=== PATIENT | female | born 1950 | race Caucasian/White ===

== ENCOUNTER 2024-08-22 07:08 | Inpatient (IN) | payer MEDICARE, MEDICAID, SELFPAY ==
[2024-08-22] VITALS (36 sets, daily range): BP systolic 126–183; BP diastolic 70–115; PULSE 60–96; RESP 16–20; TEMP 36.5–37.2; O2SAT 89–97; BMI 19.5; BMI 20.6; BMI 20.9
--- NOTE | 2024-08-22 07:30 | PD.EDRME ---
Rapid Medical Screening Exam RME Arrival date/time: 08/22/24 07:08 74-year-old female presents emergency department today for complaints of nausea vomiting abdominal pain Chief Complaint: Abdominal Pain Vital signs: Vital Signs Temperature 98.3 F 08/22/24 07:18 Pulse Rate 96 08/22/24 07:18 Respiratory Rate 18 08/22/24 07:18 Blood Pressure 183/101 H 08/22/24 07:18 Pulse Oximetry (%) 97 08/22/24 07:18 Oxygen Delivery Method Room Air 08/22/24 07:18
[2024-08-22 07:53] LABS: Basophils # (Auto) 0.1 Thou/mm3 (0.0-0.2); Basophils % (Auto) 1 % (0-2.5); Eosinophils # (Auto) 0.0 Thou/mm3 (0.0-0.5); Eosinophils % (Auto) 0 % (0-10); Hematocrit 44.5 % (36.0-46.0); Hemoglobin 14.9 g/dL (12.0-16.0); Immature Granulocytes Auto 0.04 Thou/mm3 (0.00-0.00); Lymphocytes # (Auto) 2.4 Thou/mm3 (1.0-4.8); Lymphocytes % (Auto) 23 % (10-50); Mean Corpuscular HGB Conc 33.5 g/dl (31.0-37.0); Mean Corpuscular Hemoglobin 31.0 pg (25.0-35.0); Mean Corpuscular Volume 93 fL (80-100); Monocytes # (Auto) 0.7 Thou/mm3 (0.0-0.8); Monocytes % (Auto) 7 % (0-12); Neutrophils # (Auto) 7.3 Thou/mm3 (1.8-7.7); Neutrophils % (Auto) 69 % (37-80); Nucleated Red Blood Cell # 0.00 Thou/mm3 (0.00-0.00); Nucleated Red Blood Cell % 0 /100 WBC (0); Platelet Count 223 Thou/mm3 (140-440); RDW Standard Deviation 50.6 fL (36.4-46.3); Red Blood Count 4.80 Miln/mm3 (4.00-5.20); White Blood Count 10.5 Thou/mm3 (3.6-11.0)
--- NOTE | 2024-08-22 07:57 | EDNOTE_ITS ---
ED Abdominal Pain RME/HPI General Chief Complaint: Abdominal Pain Stated complaint: NAUSEA VOMITING ABD PAIN Time seen by provider: 08/22/24 07:41 Arrival date/time: 08/22/24 07:08 Limitations: no limitations RME / HPI RME / HPI narrative: 08/22/24 07:08 74-year-old female presents emergency department today for complaints of nausea vomiting abdominal pain DR. 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 Reportedly has had persistent abdominal pain since colectomy 1 year ago that is gradually worsening. However, noted pain became sever last night adding I couldn't sleep all night . Accompanied by nausea, vomiting, and one episode of loose stool. Reportedly has consulted her GI Dr. Leroy regarding pain and has an EGD, colonoscopy, and swallow study scheduled for . Denies fevers, chills, chest pain, cough, shortness of breath, diarrhea, constipation, or urinary symptoms. Related Data Home Medications ?Medication ?Instructions ?Recorded ?Confirmed alprazolam 1 mg tablet 1 mg PO BID PRN Anxiety ##0 03/26/14 04/12/23 Held on 10/04/23. Instructions: Resume on 10/05/23. atorvastatin 80 mg tablet 80 mg PO QDAY 04/22/2004/12 omeprazole 40 mg capsule,delayed 40 mg PO QDAY 1 04/12/23 release hydrocodone 10 mg-acetaminophen 1 tab PO Q4HR PRN Pain 12/03/21 04/12/23 325 mg tablet Held on 10/04/23. Instructions: Resume on 10/05/23. fluticasone propionate 110 2 puff inhalation PRN PRN 0 04/12/23 04/12/23 mcg/actuation HFA aerosol inhaler DIFFICULTY BREATHING meclizine 25 mg tablet 25 mg PO QDAY 04/12/2304/12 mometasone 50 mcg/actuation nasal 50 mcg intranasal QD AY 04/12/23 04/12/23 spray Previous Rx's ?Medication ?Instructions ?Recorded ascorbic acid (vitamin C) 250 mg 500 mg (2 x 250 mg) P O BID #60 tabs 04/19/23 tablet (Vitamin C) docusate sodium 100 mg capsule 100 mg PO BID #90 caps 04/19/23 hydrocodone 10 mg-acetaminophen 1 tab PO Q8H PRN pain (scale score 04/19/23 325 mg tablet 7-10) #30 tabs Held on 10/04/23. Instructions: Resume on 10/05/23. zinc sulfate 50 mg zinc (220 mg) 220 mg (4.4 x 50 mg z inc (220 mg)) 04/19/23 capsule PO QDAY #30 caps Allergies Allergy/AdvReac Type Severity Reaction Status Date / Time ciprofloxacin (From Cipro) Allergy Severe itching Verified 08/22/24 07:15 onion Allergy Intermediate itching Verified 08/22/24 07:15 prochlorperazine AdvReac Severe Palpitation Verified 08/22/24 07:15 s Review of Systems Review of Systems Systems Reviewed: All systems reviewed, normal except as documented Past Medical History Past Medical History NEUROLOGIC: Positive Head Trauma CARDIAC: Positive Hypercholesterolemia RESPIRATORY: Positive Asthma, Bronchitis and Pneumonia (05/2021) GASTROINTESTINAL: Positive Gastrointestinal Disorders, Gastrointestinal Bleed, Ulcer, Colorectal Cancer, Hiatal Hernia and Gastroesophageal Reflux Disease GENITOURINARY: Positive Genitourinary Disorders (cystitis, hx of bladder ca, RECURRENT UTIs) REPRODUCTIVE: Positive Breast Cancer (RIGHT CA- TUMOR REMOVED) and Previous Pregnancies MUSCULOSKELETAL: Positive Musculoskeletal Disorders, Arthritis, Rheumatoid Arthritis, Carpal Tunnel Syndrome and Fractures ENT: Positive Cataracts (bilateral lens implant) and Head Trauma HEMATOLOGIC: Positive Blood Disorders and Anemia PSYCHO/SOCIAL: Positive Depression and Anxiety OTHER HISTORY: Positive Hospitalization (had bleeding after colonoscopy, open cholestectomy), Blood Transfusions, Blood Transfusion Reaction (Given wrong type one time and she became unresponsive), Chemotherapy, Cancer, Breast Cancer (RIGHT CA- TUMOR REMOVED) and Colorectal Cancer Family History FAMILY HISTORY: Positive Family Cardiac Disorders and Family Cancer Surgical History SURGICAL: Positive Tonsillectomy, Abdominal Surgery, Bowel Surgery (COLON CANCER), Lumpectomy (RIGHT, NO LYMPH NODES REMOVED), Hysterectomy and Section (X3) Social History SMOKING STATUS: Current every day smoker ED Exam General Limitations: Present no limitations General appearance: Present alert, anxious and other (appears to be in pain ) Head Head exam: Present atraumatic, normocephalic and normal inspection Eye Eye exam: Present normal appearance, PERRL and EOMI ENT ENT exam: Present normal exam, normal oropharynx and mucous membranes moist Neck Neck exam: Present normal inspection, full ROM and trachea midline Chest Chest inspection: Present normal inspection and symmetric chest wall rise Respiratory Respiratory exam: Present normal lung sounds bilaterally Cardiovascular Cardiovascular exam: Present regular rate, normal rhythm and normal heart sounds Abdominal Exam Abdominal exam: Present soft, tenderness (tenderness over the mid upper abdomen ), normal bowel sounds and other (Tinkling bowel sounds ) Extremities Exam Extremities exam: Present normal inspection and full ROM Back Exam Back exam: Present normal inspection and full ROM Neurological Exam Neurological exam: Present alert, oriented X3 and CN II-XII intact Psychiatric Psychiatric exam: Present normal affect and normal mood Skin Skin exam: Present warm, dry, intact and normal color Course Quality Measures none Orders Category Date Time Status COVID-19 Screening Questionnaire NOW Care 08/22/24 13:[address] Screening NOW Care 08/22/24 07:[address] Screening NOW Care 08/22/24 08:09 Active Decision to Admit X1 Care 08/22/24 13:16 Active Insert IV NOW Care 08/22/24 07:30 Active Consult to General Surgery Stat Cons 08/22/24 13:[address] abdomen pelvis w con Stat Exams 08/22/24 08:08 Completed CBC Stat Lab 08/22/24 07:36 Completed Comprehensive Metabolic Panel Stat Lab 08/22/24 07:36 Completed Lactic Acid [Lactate (Lactic Acid)] Stat Lab 08/22/24 09:11 Completed Lipase Stat Lab 08/22/24 07:36 Completed UA, C/S IF [Urinalysis, C/S if Indicated] Stat Lab 08/22/24 10:45 Completed Urine Culture Stat Lab 08/22/24 10:45 Received Morphine Inj Med 08/22/24 08:08 Discontinued 4 mg IVP X1 ONE Morphine Inj Med 08/22/24 10:55 Discontinued 4 mg IVP X1 ONE Ondansetron Inj [Zofran Inj] Med 08/22/24 07:29 Discontinued 4 mg IVP X1 ONE Ondansetron Inj [Zofran Inj] Med 08/22/24 08:08 Discontinued 4 mg IVP X1 ONE Ondansetron Inj [Zofran Inj] Med 08/22/24 10:54 Discontinued 4 mg IVP X1 ONE Pantoprazole Inj [Protonix Inj] Med 08/22/24 08:08 Discontinued 40 mg IVP X1 ONE Sodium Chloride 0.9% 1000 ml [Ns] 1,000 ml Med 08/22/24 08:08 Discontinued IV 999 mls/hr Vital Signs Vital signs: Vital Signs Temperature 98.3 F 08/22/24 07:18 Pulse Rate 96 08/22/24 07:18 Respiratory Rate 18 08/22/24 07:18 Blood Pressure 183/101 H 08/22/24 07:18 Pulse Oximetry (%) 97 08/22/24 07:18 Oxygen Delivery Method Room Air 08/22/24 07:18 Pulse ox is 97% on room air which is adequate. Abdominal Pain MDM MDM Narrative MDM Narrative:: Valencia Rucker am scribing for and in the presence of Dr. Odonnell. 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), hyperlipidemia How is presenting disease/condition affected by chronic disease/condition?: exacerbated by Evaluation data The following diagnostics were reviewed and interpreted by me:: lab results and radiology exam(s) Lab and/or radiology exams considered but not ordered:: None Interpretation Summary: Ordering Physician: Clyde Odonnell MD Date of Service: 08/22/24 Procedure(s): CT abdomen pelvis w con Accession Number(s): [id number] cc: Clyde Odonnell MD; HERNANDEZ LIMON MD; Saul Zavala MD~ Examination: CT abdomen with intravenous contrast CT pelvis with intravenous contrast 2-D coronal reconstructions 2-D sagittal reconstructions Date and time of exam:August 22, 2024 1154 hours Comparison 11/04/2023 INDICATIONS: Diagnosis malignant neoplasm of the colon with lower abdominal pain today. CTDI: vol (mGy) 6.16 DLP: (mGycm) 303 Technique: Multiple axial sections of the abdomen and pelvis have been obtained. 64 slice high-resolution scanner used. 3 mm axial sections have been obtained, post intravenous injection 60 cc [id number] 2-D sagittal, coronal reconstructions obtained. Low dose protocols were performed. One or more of the following dose reduction techniques were used; automated exposure control, adjustment of the mA and/or KV according to patient size, use of iterative reconstruction technique. Findings: Mild intrahepatic biliary tract dilatation Absent gallbladder Common hepatic duct 15 mm No pancreatic mass Minimally dilated pancreatic duct 3 mm Aorta normal size No hydronephrosis Multiple fluid distended small bowel loops No diverticulitis No bladder mass or bladder calculi Moderate stool in the colon No pelvic mass Severe osteopenia with moderate disc narrowing L5-S1 IMPRESSION: Extrahepatic biliary tract dilatation, common hepatic duct 15 mm, recommend hepatobiliary sonography follow-up High-grade small bowel obstruction, recommend Gastrografin small bowel series follow-up Dictated By: Saul Zavala MD Signed By: <Electronically signed by aSul Zavala MD in [place]> 08/22/24 1259 Medications / Prescriptions Medications or Prescriptions considered but not ordered:: None Medication administrations:: Medication Administration History Discontinued Medications Sodium Chloride (Ns) 1,000 mls @ 999 mls/hr IV .Q1H1M ONE Stop: 08/22/24 09:08 Last Infusion: 08/22/24 09:54 Dose: Infused Documented By: Admin: 08/22/24 08:29 Dose: 999 mls/hr Documented By: CG Morphine Sulfate (Morphine Sulf Inj 10 Mg/Ml Vial) 4 mg IVP X1 ONE Stop: 08/22/24 08:09 Last Admin: 08/22/24 08:27 Dose: 4 mg Documented By: CG Morphine Sulfate (Morphine Sulf Inj 10 Mg/Ml Vial) 4 mg IVP X1 ONE Stop: 08/22/24 10:56 Last Admin: 08/22/24 11:12 Dose: 4 mg Documented By: CG Ondansetron HCl (Ondansetron Inj 2 Mg/Ml Inj 2 Ml) 4 mg IVP X1 ONE; Protocol Stop: 08/22/24 07:30 Last Admin: 08/22/24 08:26 Dose: 4 mg Documented By: CG Ondansetron HCl (Ondansetron Inj 2 Mg/Ml Inj 2 Ml) 4 mg IVP X1 ONE; Protocol Stop: 08/22/24 08:09 Last Admin: 08/22/24 08:27 Dose: 4 mg Documented By: CG Ondansetron HCl (Ondansetron Inj 2 Mg/Ml Inj 2 Ml) 4 mg IVP X1 ONE; Protocol Stop: 08/22/24 10:55 Last Admin: 08/22/24 11:12 Dose: 4 mg Documented By: CG Pantoprazole Sodium (Pantoprazole Inj 40 Mg Vial) 40 mg IVP X1 ONE Stop: 08/22/24 08:09 Last Admin: 08/22/24 08:27 Dose: 40 mg Documented By: DHAVAL See above Consultations Consultation(s) initiated? (list below): Yes Consultation #1 (Physician, Specialty, Details): I spoke with surgeon Dr. Salas. Discussed patients PMHx, HPI, ED course, exam findings, labs, and radiology results. Recommends admission and bowel series. Time: 13:11 Diagnosis Differential diagnosis abdominal pain: abdominal pain, diverticulitis, gastroenteritis, pancreatitis and small bowel obstruction Most likely diagnosis given after review of the tests above:: High grade small bowel obstruction Admission Indicated Admission indicated?: indicated Admission Request Was there a request for admission?: Yes Admission Attestation Admission request attestation: Discussed case with [] from Hospitalist service regarding admission. Discussed patients ED course, exam findings, labs, and radiology results. The Hospitalist [agrees,declines] to accept the patient for admission. Disposition Plan Disposition Plan: Admit Discharge Plan Plan Patient Disposition: Admit Acute Care w/in Hospital Prescriptions/Referrals Prescriptions/Med Rec: No Action alprazolam 1 MG tablet 1 mg PO BID PRN (Reason: Anxiety) Qty: 0 hydrocodone-acetaminophen 10-325 mg tablet 1 tab PO Q4HR PRN (Reason: Pain) atorvastatin 80 mg tablet 80 mg PO QDAY Patient Comments: take 1 tablet by mouth once daily omeprazole 40 mg capsule,delayed release(DR/EC) 40 mg PO QDAY Patient Comments: take 1 capsule by mouth once daily meclizine 25 mg tablet 25 mg PO QDAY mometasone 50 mcg/actuation spray,non-aerosol 50 mcg INTRANASAL QDAY fluticasone propionate 110 mcg/actuation HFA aerosol inhaler 2 puff INHALATION PRN PRN (Reason: DIFFICULTY BREATHING) Patient Comments: inhale 1 puff by mouth and INTO THE LUNGS twice a day docusate sodium 100 mg Capsule 100 mg PO BID Qty: 90 0RF zinc sulfate 50 mg zinc (220 mg) Capsule 220 mg PO QDAY Qty: 30 0RF ascorbic acid (vitamin C) [Vitamin C] 250 mg Tablet 500 mg PO BID Qty: 60 0RF hydrocodone-acetaminophen 10-325 mg tablet 1 tab PO Q8H MDD 3 PRN (Reason: pain (scale score 7-10)) Qty: 30 0RF Referrals: Hernandez Limon MD [Primary Care Provider] - In 1 week Problem List Clinical Impression: Small bowel obstruction Patient/Caregiver Discharge Instructions Print Language: Turkish Stand Alone Forms: [employer] Award Info., Patient Portal Info Letter
--- NOTE | 2024-08-22 08:08 | XR_ITS ---
Examination: CT abdomen with intravenous contrast CT pelvis with intravenous contrast 2-D coronal reconstructions 2-D sagittal reconstructions Date and time of exam:August 22, 2024 1154 hours Comparison 11/04/2023 INDICATIONS: Diagnosis malignant neoplasm of the colon with lower abdominal pain today. CTDI: vol (mGy) 6.16 DLP: (mGycm) 303 Technique: Multiple axial sections of the abdomen and pelvis have been obtained. 64 slice high-resolution scanner used. 3 mm axial sections have been obtained, post intravenous injection 60 cc [id number] 2-D sagittal, coronal reconstructions obtained. Low dose protocols were performed. One or more of the following dose reduction techniques were used; automated exposure control, adjustment of the mA and/or KV according to patient size, use of iterative reconstruction technique. Findings: Mild intrahepatic biliary tract dilatation Absent gallbladder Common hepatic duct 15 mm No pancreatic mass Minimally dilated pancreatic duct 3 mm Aorta normal size No hydronephrosis Multiple fluid distended small bowel loops No diverticulitis No bladder mass or bladder calculi Moderate stool in the colon No pelvic mass Severe osteopenia with moderate disc narrowing L5-S1 IMPRESSION: Extrahepatic biliary tract dilatation, common hepatic duct 15 mm, recommend hepatobiliary sonography follow-up High-grade small bowel obstruction, recommend Gastrografin small bowel series follow-up
[2024-08-22 08:09] LABS: Alanine Aminotransferase 27 U/L (10-49); Albumin, Serum 4.8 gm/dL (3.4-4.8); Albumin/Globulin Ratio 1.7 (1.2-2.2); Alkaline Phosphatase 117 U/L (46-116); Anion Gap 11 (7-16); Aspartate Amino Transferase 39 U/L (0-34); BUN/Creatinine Ratio 13 Ratio (12-20); Bilirubin,Total 0.7 mg/dL (0.3-1.2); Blood Urea Nitrogen 14 mg/dL (9-23); Calcium 10.0 mg/dL (8.3-10.6); Calcium (Corrected) 10.0 mg/dL (8.5-10.1); Carbon Dioxide 26.4 mMol/L (20.0-31.0); Chloride 106 mMol/L (98-107); Creatinine (Component) 1.1 mg/dL (0.6-1.3); Estimated Creatinine Clearance 31.6 mL/min (>60); Globulin 2.9 gm/dL (2.3-3.5); Glucose 145 mg/dL (74-106); Lipase 36 U/L (12-53); Osmolality,Calculated 288 (275-295); Potassium 4.1 mMol/L (3.4-5.1); Sodium 143 mMol/L (136-145); Total Protein 7.7 gm/dL (5.7-8.2); eGFR 52 See Note
[2024-08-22] MEDS: ONDANSETRON INJ 2 MG/ML INJ 2 ML 4 MG IVP ×5 (08:26→20:16)
[2024-08-22] MEDS: MORPHINE SULF INJ 10 MG/ML VIAL 4 MG IVP ×3 (08:27→16:14)
[2024-08-22] MEDS: SODIUM CHLORIDE 0.9% 1000 ML 1,000 ML 999 ML IV (08:29)
[2024-08-22 09:21] LABS: Lactate (Lactic Acid) 1.2 mMol/L (0.4-2.0)
[2024-08-22 10:57] LABS: Collection Type, Urine Clean Catch
[2024-08-22 11:46] LABS: Bacteria,Urine Rare; Bilirubin,Urine Negative (Negative); Blood,Urine Trace (Negative); Clarity,Urine Turbid (Clear/Hazy); Color,Urine Lt-Yellow (Lt Yel-Yel); Glucose, Urine Negative (Negative); Ketones,Urine Negative (Negative); Leukocyte Esterase,Urine Positive (Negative); Nitrite,Urine Negative (Negative); PH,Urine 7.0 (5.0-7.0); Protein,Urine Negative (Neg - Trace); RBC,Urine 3 /hpf (0-3); Specific Gravity,Urine 1.013 (1.001-1.035); Squamous Epithelial Cell,Urine 1 /hpf (0-5); Urobilinogen,Urine Negative mg/dL (0.0-1.0); WBC,Urine 14 /hpf (0-5)
[2024-08-22 11:54] LABS: Culture Indicated,Urine Yes
--- NOTE | 2024-08-22 17:35 | XR_ITS ---
Examination: Small bowel series with KUBs Date and time: August 22, 20242043 hours INDICATIONS: Abdominal pain and distention this week FINDINGS: Patient received 120 cc Gastrografin 1 minute and 30 minute 1 hour films obtained follow-up Contrast distended small bowel loops noted IMPRESSION: Small bowel obstruction pattern recommend follow-up films midnight 3:00 AM 7:00 AM
--- NOTE | 2024-08-22 17:44 | ESHP_ITS ---
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 Admits to chronic abdominal pain since transverse colectomy last year. However, reports 3 days of gradual onset, 9/10 abdominal pain, diffusely. She has chronic constipation managed well with daily DOCUSATE. Her last bowel movement was yesterday and was small, normal consistency and color. She hasn't been passing flatus since the last 3 days. Reports being nauseous over the last day, and admits to several episodes of vomiting, nonbloody, stomach content. She has a history of Carrasco syndrome (MLH1 and PMS2), was diagnosed with adenocarcinoma of the transverse colon and had a transverse colectomy in 2023 at our facility. She was followed up by Dr. Reid who had previously in regards to her cancer. There was evidence of 22 mm oval mass of the right breast on mammogram in addition to small pulmonary nodule in the lungs. Per chart review she's had a history of noninvasive bladder cancer which was treated with chemotherapy without evidence of recurrence since 2023. She was seen by Dr. Puri last year and he had ordered PET scans but patient had never followed up. Currently not following an oncologist outpatient, but is under the care of Dr. Leroy for stomach pain, and he had planned for EGD and colonoscopy this . Interestingly, she states she was diagnosed with several liver masses in 2014. At the time, she underwent surgery for presumptive mass excisions; however, her gallbladder was removed at the time, and, to her knowledge, nothing was done about the liver mass. She takes NORCO every other day for right shoulder pain. She takes DOCUSATE regularly and denies history of constipation. Denies fever, chills, night sweats, abnormal weight changes, chest pain, shortness of breath, chest pain, dizziness, fall or trauma, diarrhea, bloody stool, hematuria, dysuria, urinary urgency or frequency. Past Medical History: * Carrasco syndrome, adenocarcinoma of the transverse colon, breast cancer, pulmonary nodules, liver nodules, HLD, seasonal allergy, asthma. Past Surgical History: * Transverse colectomy 2023, right breast mastectomy 2023, hiatal hernia repair 1997, cholecystectomy 2014, C-sections x 3. Medications: * OMEPRAZOLE, ATORVASTATIN 10 mg, ASPIRIN 81 mg, DOCUSATE, FLONASE, inhaler as needed for asthma. Allergies: * Severe itching with CIPROFLOXACIN, tachycardia with HYDROMORPHONE, palpitation with PROCHLORPERAZINE, allergy to onion (itching). Family History: * History of cancer and heart disease in family. Social History: * Born in [place], grew up in [place], moved to [place] in 1967. 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 * Occasional alcohol use. * Active smoker since the age of 17, about [id number] history. * Denies drug use. ED Course: * Afebrile, BP 183/101, HR 96, satting well on room air. * CBC and CMP relatively unremarkable except for elevated AST/ALT which appear to be chronic, and EGFR 52%, creatinine 1.1 (baseline 1.0.). * UA turbid with positive leukocyte esterase, WBC 14, however she is asymptomatic. * CT abdomen showed high-grade SBO, redemonstrated hepatic duct dilation, also seen on CT abdomen from 2023 (likely close cholecystectomy change). Reason for admission: Will admit for GASTROGRAFIN study and will involve GI team. General surgery, Dr. Salas, is following. Exam Vital Signs Temp Pulse Resp BP Pulse Ox O2 Del Method 97.7 F 73 18 159/92 H 95 Room Air 08/22/24 16:08/22/24 16:00 08/22/24 16:00 08/22/24 16:08/22/24 16:08/22/24 16:00 Narrative Exam GENERAL * Normal appearing elderly female, no apparent distress HEENT * NCAT.?SARAH. Dry oral mucosa. Patent Nares NECK * Supple, nontender, no JVD. CHEST * RRR, no m/g/r * CTAB, no w/r/r, symmetrical expansion. * S/p right mastectomy, no palpable nodules. ABDOMEN * Soft, flat, diffusely tender to mild palpation, guarding and rebound tenderness present throughout. No palpable masses noted. Several well-healed scars noted throughout the abdomen. * Bowel sounds presents, but decreased on the right. EXTREMITIES * No edema/cyanosis.? SKIN * Warm and dry, no jaundice/rashes. NEUROMUSCULAR * No focal neurologic deficits. PSYCHIATRY * Normal mood and affect, cooperative, no SI or HI or hallucinations. Results: Labs 08/25/24 05:52 08/25/24 05:52 Labs: Short CBC 08/22/24 Range/Units 07:36 WBC 10.5 (3.6-11.0) Thou/mm3 Hgb 14.9 (12.0-16.0) g/dL Hct 44.5 (36.0-46.0) % Plt Count 223 (140-440) Thou/mm3 BMP 08/22/24 07:36 Sodium 143 Potassium 4.1 Chloride 106 Carbon Dioxide 26.4 BUN 14 Creatinine 1.1 Glucose 145 H Calcium 10.0 Liver Function 08/22/24 Range/Units 07:36 Total Bilirubin 0.7 (0.3-1.2) mg/dL AST 39 H (0-34) U/L ALT 27 (10-49) U/L Alkaline Phosphatase 117 H (46-116) U/L Albumin 4.8 (3.4-4.8) gm/dL Urine 08/22/24 Range/Units 10:45 Urine Color Lt-Yellow (Lt Yel-Yel) Urine Clarity Turbid A (Clear/Hazy) Urine pH 7.0 (5.0-7.0) Ur Specific [place] 1.013 (1.001-1.035) Urine Protein Negative (Neg - Trace) Urine Glucose (UA) Negative (Negative) Quality Measures Quality Measures none Advance care planning discussed with:: patient Medications Home Medications and Allergies Home Medications ?Medication ?Instructions ?Recorded ?Confirmed ?Type alprazolam 1 mg tablet 1 mg PO BID PRN Anxiety ##0 03/26/14 08/22/24 History Held on 10/04/23. Instructions: Resume on 10/05/23. omeprazole 40 mg capsule,delayed 40 mg PO QDAY 1 08/22/24 History release hydrocodone 10 mg-acetaminophen 1 tab PO Q4HR PRN Pain 12/03/21 08/22/24 History 325 mg tablet fluticasone propionate 110 2 puff inhalation PRN PRN 0 04/12/23 08/22/24 History mcg/actuation HFA aerosol inhaler DIFFICULTY BREATHING mometasone 50 mcg/actuation nasal 50 mcg intranasal QD AY 04/12/23 08/22/24 History spray aspirin 81 mg tablet,delayed 81 mg PO QDAY 08/22/24 History release Allergies Allergy/AdvReac Type Severity Reaction Status Date / Time ciprofloxacin (From Cipro) Allergy Severe itching Verified 08/22/24 17:43 hydromorphone (From Dilaudid) Allergy Severe tachycardia Verified 08/22/24 17:43 onion Allergy Intermediate itching Verified 08/22/24 17:43 prochlorperazine AdvReac Severe Palpitation Verified 08/22/24 17:43 s Visit Medications Acetaminophen (Acetaminophen 325 Mg Tablet) 650 mg PO Q6H PRN PRN Reason: PAIN SCALE 1-3 (mild Stop: 09/21/24 17:34 Acetaminophen (Acetaminophen 325 Mg Tablet) 650 mg PO Q6H PRN PRN Reason: Fever >100.4 Stop: 09/21/24 17:34 Heparin Sodium (Porcine) (Heparin Sod Inj 5000 Unit/Ml Vial) 5,000 unit SC BID [facility] Stop: 09/05/24 20:59 Hydralazine HCl (Hydralazine Inj 20 Mg/Ml Vial) 10 mg IVP Q6H PRN PRN Reason: BP >160/100 Stop: 09/21/24 17:42 Lactated Ringer's (Lactated Ringers) 1,000 mls @ 80 mls/hr IV .[id number] [facility] Stop: 09/21/24 17:36 Acetaminophen (Ofirmev Inj) 1,000 mg in 100 mls @ 250 mls/hr IV Q6HR PRN PRN Reason: Fever or Pain 1-4 Stop: 08/23/24 06:23 Morphine Sulfate (Morphine Sulf Inj 10 Mg/Ml Vial) 2 mg IVP Q6H PRN PRN Reason: Pain 6-10 Morphine Sulfate (Morphine Sulf Inj 10 Mg/Ml Vial) 1 mg IVP Q4H PRN PRN Reason: Pain 4-6 Ondansetron HCl (Ondansetron Inj 2 Mg/Ml Inj 2 Ml) 4 mg IVP Q6H PRN; Protocol PRN Reason: NAUSEA OR VOMITING Stop: 09/21/24 17:34 Pantoprazole Sodium (Pantoprazole Inj 40 Mg Vial) 40 mg IVP QDAY BARBARA Stop: 09/21/24 17:44 Discontinued Medications Sodium Chloride (Ns) 1,000 mls @ 999 mls/hr IV .Q1H1M ONE Stop: 08/22/24 09:08 Last Infusion: 08/22/24 09:54 Dose: Infused Morphine Sulfate (Morphine Sulf Inj 10 Mg/Ml Vial) 4 mg IVP X1 ONE Stop: 08/22/24 08:09 Last Admin: 08/22/24 08:27 Dose: 4 mg Morphine Sulfate (Morphine Sulf Inj 10 Mg/Ml Vial) 4 mg IVP X1 ONE Stop: 08/22/24 10:56 Last Admin: 08/22/24 11:12 Dose: 4 mg Morphine Sulfate (Morphine Sulf Inj 10 Mg/Ml Vial) 4 mg IVP X1 ONE Stop: 08/22/24 15:37 Last Admin: 08/22/24 16:14 Dose: 4 mg Ondansetron HCl (Ondansetron Inj 2 Mg/Ml Inj 2 Ml) 4 mg IVP X1 ONE; Protocol Stop: 08/22/24 07:30 Last Admin: 08/22/24 08:26 Dose: 4 mg Ondansetron HCl (Ondansetron Inj 2 Mg/Ml Inj 2 Ml) 4 mg IVP X1 ONE; Protocol Stop: 08/22/24 08:09 Last Admin: 08/22/24 08:27 Dose: 4 mg Ondansetron HCl (Ondansetron Inj 2 Mg/Ml Inj 2 Ml) 4 mg IVP X1 ONE; Protocol Stop: 08/22/24 10:55 Last Admin: 08/22/24 11:12 Dose: 4 mg Ondansetron HCl (Ondansetron Inj 2 Mg/Ml Inj 2 Ml) 4 mg IVP X1 ONE; Protocol Stop: 08/22/24 15:37 Last Admin: 08/22/24 16:13 Dose: 4 mg Pantoprazole Sodium (Pantoprazole Inj 40 Mg Vial) 40 mg IVP X1 ONE Stop: 08/22/24 08:09 Last Admin: 08/22/24 08:27 Dose: 40 mg Assessment & Plan Plan In summary: 74-year-old female with 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 Admitted for high-grade SBO. Recommendation from general surgery and GI teams. High-grade SBO. Adenocarcinoma of transverse colon S/p transverse colectomy 2023 Carrasco syndrome Hx tubular adenocarcinoma of the colon Chronic constipation As stated in HPI, extensive history of cancer involving the colon and had transverse colectomy 2023, with ongoing abdominal pain. However reports worsening pain over the last 2 days associated with nausea and vomiting. Last bowel movement was yesterday and was normal. Currently not passing gas. Extensive abdominal tenderness tenderness noted noted on exam throughout. Sounds were present but decreased on the right. CT abdomen showed high-grade SBO. General surgery on board. Given extensive history of adenocarcinoma and Carrasco syndrome, we have involved her GI doctor, Dr. Leroy ? Bowel rest ? Initiate GASTROGRAFIN study ? NG tube suction ? Continue IVF at 80 cc ? Pain control ? Pending general surgery recommendations ? Pending GI recommendations Hypertension (resolved) Likely reactive secondary to pain. No history of hypertension. Reports BP usually on the softer side. Currently normotensive. ? Continue to monitor HLD No lipid panel on file. ? Continue home ATORVASTATIN 10 mg daily Seasonal allergy Asthma ? DuoNebs q.6h. PRN Extensive history of malignancy Adenocarcinoma transverse colon s/p colectomy Invasive carcinoma of the breast s/p right mastectomy Reported history of liver masses Hx pulmonary nodule Previously followed up with Dr. Puri, last seen a year ago. Currently denies B symptoms such as fever, chills, or night sweat, or abnormal weight loss. ? Recommended outpatient follow-up Case was discussed with attending physician. Yo Russ DO PGY II This document was transcribed using voice recognition technology. Minor inaccuracies may be present. Attending Provider Attestation/Addendum I attest that I was physically present for the evaluation, physical examination, lab and imaging review of the patient with the residents. I discussed the case with the residents and agree with the findings and plans of care as documented above. After examination of the patient and review of the clinical data I feel that this patient needs admission to the hospital for further treatment/evaluation. Ezra Burch MD
[2024-08-22] MEDS: LIDOCAINE JELLY 2% (Urojet) 10 ML TUBE TOP (18:49)
[2024-08-22] MEDS: BENZOCAINE 20% (Hurricaine) SPRAY 1 DOSE TOP (18:50)
[2024-08-22] MEDS: RINGERS LACTATED 1000 ML 1,000 ML 80 ML IV (18:53)
--- NOTE | 2024-08-22 18:55 | XR_ITS ---
Examination: AP chest single view TECHNIQUE: Portable AP sitting chest single view Date and time: August 22, 2024 1906 hours Comparison April 13, 2023 INDICATIONS: Posterior orogastric tube placement FINDINGS: Orogastric tube in the stomach satisfactory position Normal heart size Ectatic aorta Reverse right shoulder arthroplasty. No pneumonia. IMPRESSION: Orogastric tube satisfactory position
[2024-08-22] MEDS: HEPARIN SOD INJ 5000 UNIT/ML VIAL SC (20:16)
[2024-08-22] MEDS: MORPHINE SULF INJ 10 MG/ML VIAL 2 MG IVP (20:17)
--- NOTE | 2024-08-22 21:52 | ESCONSULT_ITS ---
HPI Data of Consult Requesting Physician: Ezra Burch MD Primary Care Provider: Rene Ivy MD Consult Narrative Reason for consult: Pain abdomen nausea vomiting abdominal distention History of present illness: 74 years female who has history of colon carcinoma status post colonic resection presented to the emergency room with abdominal pain discomfort nausea vomiting and abdominal bloating CT scan of the abdomen pelvis showed high-grade small bowel obstruction as well as dilated intra and extrahepatic biliary dilatation for which she has already been worked up at [facility] with EUS and there was no stricture or common bile duct stone was found There is a chronic dilatation Patient subsequently admitted She is scheduled for an upper endoscopy and colonoscopy as an outpatient for her colon carcinoma surveillance as well as her abdominal pain issues cc:: cc: Ezra Burch MD Review of Systems Review of Systems Systems Reviewed: All systems reviewed, normal except as documented Past Medical History Surgical History OTHER SURGICAL HX: As in the history of present illness Meds Home Medications and Allergies Home Medications ?Medication ?Instructions ?Recorded ?Confirmed ?Type alprazolam 1 mg tablet 1 mg PO BID PRN Anxiety ##0 03/26/14 08/22/24 History Held on 10/04/23. Instructions: Resume on 10/05/23. omeprazole 40 mg capsule,delayed 40 mg PO QDAY 1 08/22/24 History release hydrocodone 10 mg-acetaminophen 1 tab PO Q4HR PRN Pain 12/03/21 08/22/24 History 325 mg tablet fluticasone propionate 110 2 puff inhalation PRN PRN 0 04/12/23 08/22/24 History mcg/actuation HFA aerosol inhaler DIFFICULTY BREATHING mometasone 50 mcg/actuation nasal 50 mcg intranasal QD AY 04/12/23 08/22/24 History spray aspirin 81 mg tablet,delayed 81 mg PO QDAY 08/22/24 History release Allergies Allergy/AdvReac Type Severity Reaction Status Date / Time ciprofloxacin (From Cipro) Allergy Severe itching Verified 08/22/24 17:43 hydromorphone (From Dilaudid) Allergy Severe tachycardia Verified 08/22/24 17:43 onion Allergy Intermediate itching Verified 08/22/24 17:43 prochlorperazine AdvReac Severe Palpitation Verified 08/22/24 17:43 s Exam Vital Signs Temp Pulse Resp BP Pulse Ox O2 Del Method 98.5 F 75 20 142/78 H 95 Room Air 08/22/24 19:32 08/22/24 19:32 08/22/24 19:32 08/22/24 19:32 08/22/24 19:32 08/22/24 19:32 Constitutional Comments: Chronically ill-appearing Nasogastric tube in place with bilious drainage Routine Respiratory Exam Comments: Normal to auscultation Routine Abdominal Exam Comments: Distended no bowel sounds Results Labs 08/23/24 05:41 08/23/24 15:17 Labs: Short CBC 08/22/24 Range/Units 07:36 WBC 10.5 (3.6-11.0) Thou/mm3 Hgb 14.9 (12.0-16.0) g/dL Hct 44.5 (36.0-46.0) % Plt Count 223 (140-440) Thou/mm3 BMP 08/22/24 07:36 Sodium 143 Potassium 4.1 Chloride 106 Carbon Dioxide 26.4 BUN 14 Creatinine 1.1 Glucose 145 H Calcium 10.0 Liver Function 08/22/24 Range/Units 07:36 Total Bilirubin 0.7 (0.3-1.2) mg/dL AST 39 H (0-34) U/L ALT 27 (10-49) U/L Alkaline Phosphatase 117 H (46-116) U/L Albumin 4.8 (3.4-4.8) gm/dL Urine 08/22/24 Range/Units 10:45 Urine Color Lt-Yellow (Lt Yel-Yel) Urine Clarity Turbid A (Clear/Hazy) Urine pH 7.0 (5.0-7.0) Ur Specific [place] 1.013 (1.001-1.035) Urine Protein Negative (Neg - Trace) Urine Glucose (UA) Negative (Negative) Assessment and Plan Additional Assessment & Plan Additional Plan: # Small bowel obstruction most likely due to abdominal adhesions NGT to intermittent suction Gastrografin small bowel follow-through Will follow the patient # Colon carcinoma status post colonic resection Patient already scheduled for an outpatient surveillance colonoscopy # Dilated intrahepatic biliary ductal system with a total bilirubin of 0.7 AST ALT mildly elevated at 84 and 78 and alk phos of 104 Nothing needs to be done at this point as it has been fully worked up in the past at [facility] Will follow the patient Thank you very much for the opportunity to participate in the care of this patient
[2024-08-23] VITALS (7 sets, daily range): BP systolic 124–164; BP diastolic 71–88; PULSE 67–89; RESP 16–18; TEMP 36.2–36.7; O2SAT 90–96
--- NOTE | 2024-08-23 00:45 | XR_ITS ---
Examination: Abdomen AP single view Technique: AP portable supine abdomen, single view Exam date and time: August 23, 2024, 0024 hours INDICATIONS: Abdominal pain and distention this week, 4 hour delayed film for small bowel series FINDINGS: Contrast in distended small bowel loops IMPRESSION: Small bowel obstruction pattern, additional delayed films will be obtained
[2024-08-23] MEDS: ONDANSETRON INJ 2 MG/ML INJ 2 ML 4 MG IVP (03:25)
[2024-08-23] MEDS: MORPHINE SULF INJ 10 MG/ML VIAL 2 MG IVP ×2 (03:34→10:31)
--- NOTE | 2024-08-23 03:45 | XR_ITS ---
Examination: Abdomen AP single view Technique: AP portable supine abdomen, single view Exam date and time: August 23, 2024, 0333 hours INDICATIONS: Abdominal pain and distention this week, 7 hour delayed film for small bowel series FINDINGS: Contrast remains in distended small bowel loops IMPRESSION: Small bowel obstruction pattern, additional delayed films will be obtained
[2024-08-23 06:07] LABS: Basophils # (Auto) 0.0 Thou/mm3 (0.0-0.2); Basophils % (Auto) 0 % (0-2.5); Eosinophils # (Auto) 0.0 Thou/mm3 (0.0-0.5); Eosinophils % (Auto) 0 % (0-10); Hematocrit 41.5 % (36.0-46.0); Hemoglobin 13.8 g/dL (12.0-16.0); Immature Granulocytes Auto 0.04 Thou/mm3 (0.00-0.00); Lymphocytes # (Auto) 1.1 Thou/mm3 (1.0-4.8); Lymphocytes % (Auto) 11 % (10-50); Mean Corpuscular HGB Conc 33.3 g/dl (31.0-37.0); Mean Corpuscular Hemoglobin 30.9 pg (25.0-35.0); Mean Corpuscular Volume 93 fL (80-100); Monocytes # (Auto) 0.5 Thou/mm3 (0.0-0.8); Monocytes % (Auto) 5 % (0-12); Neutrophils # (Auto) 8.4 Thou/mm3 (1.8-7.7); Neutrophils % (Auto) 83 % (37-80); Nucleated Red Blood Cell # 0.00 Thou/mm3 (0.00-0.00); Nucleated Red Blood Cell % 0 /100 WBC (0); Platelet Count 169 Thou/mm3 (140-440); RDW Standard Deviation 51.7 fL (36.4-46.3); Red Blood Count 4.46 Miln/mm3 (4.00-5.20); White Blood Count 10.1 Thou/mm3 (3.6-11.0)
[2024-08-23 06:43] LABS: Alanine Aminotransferase 78 U/L (10-49); Albumin, Serum 4.2 gm/dL (3.4-4.8); Albumin/Globulin Ratio 1.6 (1.2-2.2); Alkaline Phosphatase 104 U/L (46-116); Anion Gap 12 (7-16); Aspartate Amino Transferase 84 U/L (0-34); BUN/Creatinine Ratio 16 Ratio (12-20); Bilirubin,Total 0.7 mg/dL (0.3-1.2); Blood Urea Nitrogen 16 mg/dL (9-23); Calcium 9.2 mg/dL (8.3-10.6); Calcium (Corrected) 9.2 mg/dL (8.5-10.1); Carbon Dioxide 28.8 mMol/L (20.0-31.0); Cardiac Risk Estimate 1.8 RATIO (3.7-5.6); Chloride 107 mMol/L (98-107); Cholesterol 118 mg/dL (132-200); Creatinine (Component) 1.0 mg/dL (0.6-1.3); Estimated Creatinine Clearance 34.9 mL/min (>60); Globulin 2.6 gm/dL (2.3-3.5); Glucose 121 mg/dL (74-106); HDL Cholesterol 65 mg/dL (40-60); LDL Cholesterol,Calculated 42 mg/dL (0-130); Magnesium 2.2 mg/dL (1.6-2.6); Osmolality,Calculated 296 (275-295); Phosphorous 5.0 mg/dL (2.4-5.1); Potassium 3.8 mMol/L (3.4-5.1); Sodium 148 mMol/L (136-145); Total Protein 6.8 gm/dL (5.7-8.2); Triglycerides 56 mg/dL (30-150); eGFR 59 See Note
--- NOTE | 2024-08-23 06:45 | XR_ITS ---
Examination: Abdomen AP single view Technique: AP portable supine abdomen, single view Exam date and time: August 23, 2024, 0705 hours INDICATIONS: Abdominal pain and distention this week, 10 hour delay film post small bowel series FINDINGS: Contrast in significantly distended small bowel loops. However, contrast is now present in the colon IMPRESSION: Incomplete small bowel obstruction pattern, one additional film recommended at 11:00 AM
--- NOTE | 2024-08-23 08:09 | PD.SURCONS ---
HPI Consult details Consult date: 08/23/24 Reason for consultation narrative: Small bowel obstruction History of present illness: 74-year-old female with history of Carrasco syndrome status post transverse colectomy, chronic abdominal pain, history of cholecystectomy and splenectomy presented with worsening abdominal pain with nausea and vomiting. CT scan revealed dilated loops of small bowel concerning for small bowel obstruction. NG tube was placed and patient was admitted for further management. Review of Systems Constitutional Constitutional: Denies chills and Denies fever(s) Cardiovascular Cardiovascular: Denies chest pain Respiratory Respiratory: Denies cough Gastrointestinal Gastrointestinal: Reports abdominal pain, Reports nausea and Reports vomiting Hematologic/Lymphatic Hematologic/Lymphatic: Denies easy bleeding and Denies easy bruising Past Medical History Surgical History OTHER SURGICAL HX: Hysterectomy, cholecystectomy, exploratory laparotomy from right subcostal incision for bile leak from cholecystectomy, hiatal hernia repair, transverse colectomy, splenectomy Meds Home Medications and Allergies Home Medications ?Medication ?Instructions ?Recorded ?Confirmed ?Type alprazolam 1 mg tablet 1 mg PO BID PRN Anxiety ##0 03/26/14 08/22/24 History Held on 10/04/23. Instructions: Resume on 10/05/23. omeprazole 40 mg capsule,delayed 40 mg PO QDAY 04/22/20 08/22/24 History release hydrocodone 10 mg-acetaminophen 1 tab PO Q4HR PRN Pain 12/03/21 08/22/24 History 325 mg tablet fluticasone propionate 110 2 puff inhalation PRN PRN 04/12/23 08/22/24 History mcg/actuation HFA aerosol inhaler DIFFICULTY BREATHING mometasone 50 mcg/actuation nasal 50 mcg intranasal QDAY 04/12/23 08/22/24 History spray aspirin 81 mg tablet,delayed 81 mg PO QDAY 08/22/24 08/22/24 History release Allergies Allergy/AdvReac Type Severity Reaction Status Date / Time ciprofloxacin (From Cipro) Allergy Severe itching Verified 08/22/24 17:43 hydromorphone (From Dilaudid) Allergy Severe tachycardia Verified 08/22/24 17:43 onion Allergy Intermediate itching Verified 08/22/24 17:43 prochlorperazine AdvReac Severe Palpitation Verified 08/22/24 17:43 s Exam Vital Signs Temp Pulse Resp BP Pulse Ox O2 Del Method 97.2 F 75 18 164/88 H 96 Room Air 08/23/24 07:42 08/23/24 07:42 08/23/24 07:42 08/23/24 07:42 08/23/24 07:42 08/23/24 07:42 Constitutional Constitutional: no acute distress Routine Abdominal Exam Comments: Abdomen is soft and mildly distended. She has tenderness to palpation throughout the abdomen, no rebound tenderness or peritonitis at this time Assessment & Plan Problem List (1) Small bowel obstruction: Status: Acute Plan Keep NG tube clamped. Awaiting small bowel series
[2024-08-23] MEDS: HEPARIN SOD INJ 5000 UNIT/ML VIAL SC ×2 (09:41→20:06)
[2024-08-23] MEDS: DEXTROSE 5%-WATER 500 ML 75 ML IV (10:34)
--- NOTE | 2024-08-23 11:00 | XR_ITS ---
Examination: Abdomen AP single view Technique: AP portable supine abdomen, single view Exam date and time: August 23, 2024 1051 hours INDICATIONS: 14 hour delayed film post small bowel series today FINDINGS: Most of the contrast is in the colon on the current study IMPRESSION: Negative for complete small bowel obstruction
--- NOTE | 2024-08-23 11:07 | ESPR_ITS ---
Documentation for date of: 08/23/24 Subjective Subjective Interval history: Patient seen at bedside. No acute overnight events. Patient appears comfortable. Exam Vital Signs Temp Pulse Resp BP Pulse Ox O2 Del Method 97.2 F 75 18 164/88 H 96 Room Air 08/23/24 07:42 08/23/24 07:42 08/23/24 07:42 08/23/24 07:42 08/23/24 07:42 08/23/24 07:42 Narrative Exam GENERAL * Normal appearing elderly female, no apparent distress HEENT * NCAT.?SARAH. Dry oral mucosa. Patent Nares NECK * Supple, nontender, no JVD. CHEST * RRR, no m/g/r * CTAB, no w/r/r, symmetrical expansion. * S/p right mastectomy, no palpable nodules. ABDOMEN * Soft, flat, diffusely tender to mild palpation, guarding and rebound tenderness present throughout. No palpable masses noted. Several well-healed scars noted throughout the abdomen. * Bowel sounds presents, but decreased on the right. EXTREMITIES * No edema/cyanosis.? SKIN * Warm and dry, no jaundice/rashes. NEUROMUSCULAR * No focal neurologic deficits. PSYCHIATRY * Normal mood and affect, cooperative, no SI or HI or hallucinations. Objective Labs 08/24/24 05:50 08/24/24 05:50 Labs: Laboratory Results - last 24 hr 08/22/24 08/23/24 10:45 05:41 WBC 10.1 RBC 4.46 Hgb 13.8 Hct 41.5 MCV 93 MCH 30.9 MCHC 33.3 RDW Std Deviation 51.7 H Plt Count 169 D Neut % (Auto) 83 H Lymph % (Auto) 11 [place] % (Auto) 5 Eos % (Auto) 0 Baso % (Auto) 0 Neut # (Auto) 8.4 H Lymph # (Auto) 1.1 [place] # (Auto) 0.5 Eos # (Auto) 0.0 Baso # (Auto) 0.0 Immature Gran # (Auto) 0.04 H Absolute Nucleated RBC 0.00 Immature Gran % 0 Nucleated RBC % 0 Sodium 148 H Potassium 3.8 Chloride 107 Carbon Dioxide 28.8 Anion Gap 12 BUN 16 Creatinine 1.0 Estim Creat Clear Calc 34.9 L eGFR 59 L BUN/Creatinine Ratio 16 Glucose 121 H Calculated Osmolality 296 H Calcium 9.2 Corrected Calcium 9.2 Phosphorus 5.0 Magnesium 2.2 Total Bilirubin 0.7 AST 84 H ALT 78 H Alkaline Phosphatase 104 Total Protein 6.8 Albumin 4.2 D Globulin 2.6 Albumin/Globulin Ratio 1.6 Triglycerides 56 Cholesterol 118 L LDL Cholesterol, Calc 42 HDL Cholesterol 65 H Cholesterol/HDL Ratio 1.8 L Ur Collection Type Clean Catch Urine Color Lt-Yellow Urine Clarity Turbid A Urine pH 7.0 Ur Specific [place] 1.013 Urine Protein Negative Urine Glucose (UA) Negative Urine Ketones Negative Urine Blood Trace Urine Nitrite Negative Urine Bilirubin Negative Urine Urobilinogen (Auto) Negative Ur Leukocyte Esterase Positive Urine RBC 3 Urine WBC 14 H Ur Squamous Epith Cells 1 Urine Bacteria Rare Ur Culture Indicated? Yes Quality Measures Quality Measures none Advance care planning discussed with:: patient Assessment & Plan Assessment Current Active Medications: Generic Name Dose Route Start Last Admin Trade Name Freq PRN Reason Stop Dose Admin Acetaminophen 650 mg 08/22/24 17:35 Acetaminophen 325 Mg Tablet PO 09/21/24 17:34 Q6H PRN PAIN SCALE 1-3 (mild Acetaminophen 650 mg 08/22/24 17:35 Acetaminophen 325 Mg Tablet PO 09/21/24 17:34 Q6H PRN Fever >100.4 Albuterol/Ipratropium 3 ml 08/22/24 18:21 Albuterol/Ipratropium (Duoneb) Rt Joselin 3 Ml Nebu INH 09/21/24 18:20 Q6HRRT PRN Wheezing Atorvastatin Calcium 10 mg 08/22/24 21:00 08/22/24 23:08 Atorvastatin Calcium 10 Mg Tablet PO 09/21/24 20:59 Not Given HS [facility] Heparin Sodium (Porcine) 5,000 unit 08/22/24 21:00 08/23/24 09:41 Heparin Sod Inj 5000 Unit/Ml Vial SC 09/05/24 20:59 5,000 unit BID BARBARA Administration Hydralazine HCl 10 mg 08/22/24 17:43 Hydralazine Inj 20 Mg/Ml Vial IVP 09/21/24 17:42 Q6H PRN BP >160/100 Acetaminophen 1,000 mg in 68 mls @ 170 mls/hr 08/22/24 17:38 Ofirmev Inj IV Q6HR PRN Fever or Pain 1-3 Dextrose 500 mls @ 75 mls/hr 08/23/24 10:45 08/23/24 10:34 D5w IV 08/23/24 17:24 75 mls/hr .Q6H40M BARBARA Administration Lidocaine 1 patch 08/22/24 17:44 Lidocaine 5% 1 Patch TOP 09/21/24 17:43 UD PRN Pain right shoudler Morphine Sulfate 1 mg 08/22/24 17:35 Morphine Sulf Inj 10 Mg/Ml Vial IVP Q4H PRN Pain 4-6 Ondansetron HCl 4 mg 08/22/24 17:35 08/23/24 03:25 Ondansetron Inj 2 Mg/Ml Inj 2 Ml IVP 09/21/24 17:34 4 mg Q6H PRN Administration NAUSEA OR VOMITING Protocol Pantoprazole Sodium 40 mg 08/22/24 17:45 08/23/24 09:40 Pantoprazole Inj 40 Mg Vial IVP 09/21/24 17:44 40 mg QDAY BARBARA Administration Plan dc ngt repeat sodium noon In summary: 74-year-old female with 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 Admitted for high-grade SBO. Recommendation from general surgery and GI teams. 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 However reports worsening pain over the last 2 days associated with nausea and vomiting. Last bowel movement was yesterday and was normal. Currently not passing gas. Extensive abdominal tenderness tenderness noted noted on exam throughout. Sounds were present but decreased on the right. CT abdomen showed high-grade SBO. General surgery on board. Given extensive history of adenocarcinoma and Carrasco syndrome, we have involved her GI doctor, Dr. Leroy. Small bowel series shows resolution of SBO. NGT was discontinued. Currently on clear liquid diet, tolerating well. Having regular bowel movements. No plan for intervention from GI's perspective. ? Pain control ? Advance diet as tolerated Mild hypernatremia Sodium 148, likely from NS. Free water deficit 0.3 L ? Will give 500 cc of D5W at 78 cc/h ? Will continue with LR. Going forward if needed Hypertension (resolved) Likely reactive secondary to pain. No history of hypertension. Reports BP usually on the softer side. Currently normotensive. ? Continue to monitor HLD No lipid panel on file. ? Continue home ATORVASTATIN 10 mg daily Seasonal allergy Asthma ? DuoNebs q.6h. PRN Extensive history of malignancy Adenocarcinoma transverse colon s/p colectomy Invasive carcinoma of the breast s/p right mastectomy Reported history of liver masses Hx pulmonary nodule Previously followed up with Dr. Puri, last seen a year ago. Currently denies B symptoms such as fever, chills, or night sweat, or abnormal weight loss. ? Recommended outpatient follow-up Case was discussed with attending physician. Yo Russ, PGY II This document was transcribed using voice recognition technology. Minor inaccuracies may be present. Attending Provider Attestation/Addendum I have examined the patient, reviewed labs and imaging findings, discussed the case with the resident(s), and reviewed entered orders. I agree with the plan of care as outlined in this note. Dr. Tico MD
--- NOTE | 2024-08-23 13:02 | PD.IMPROG ---
Documentation for date of: 08/23/24 Subjective Subjective Interval history: Small bowel follow-through negative NG tube to be discontinued Possibly start on clear liquids Exam Vital Signs Temp Pulse Resp BP Pulse Ox O2 Del Method 97.2 F 67 16 164/88 H 93 L Room Air 08/23/24 12:00 08/23/24 12:00 08/23/24 12:00 08/23/24 12:00 08/23/24 12:00 08/23/24 12:00 Objective Labs 08/23/24 05:41 08/23/24 15:17 Labs: Laboratory Results - last 24 hr 08/23/24 05:41 WBC 10.1 RBC 4.46 Hgb 13.8 Hct 41.5 MCV 93 MCH 30.9 MCHC 33.3 RDW Std Deviation 51.7 H Plt Count 169 D Neut % (Auto) 83 H Lymph % (Auto) 11 [place] % (Auto) 5 Eos % (Auto) 0 Baso % (Auto) 0 Neut # (Auto) 8.4 H Lymph # (Auto) 1.1 [place] # (Auto) 0.5 Eos # (Auto) 0.0 Baso # (Auto) 0.0 Immature Gran # (Auto) 0.04 H Absolute Nucleated RBC 0.00 Immature Gran % 0 Nucleated RBC % 0 Sodium 148 H Potassium 3.8 Chloride 107 Carbon Dioxide 28.8 Anion Gap 12 BUN 16 Creatinine 1.0 Estim Creat Clear Calc 34.9 L eGFR 59 L BUN/Creatinine Ratio 16 Glucose 121 H Calculated Osmolality 296 H Calcium 9.2 Corrected Calcium 9.2 Phosphorus 5.0 Magnesium 2.2 Total Bilirubin 0.7 AST 84 H ALT 78 H Alkaline Phosphatase 104 Total Protein 6.8 Albumin 4.2 D Globulin 2.6 Albumin/Globulin Ratio 1.6 Triglycerides 56 Cholesterol 118 L LDL Cholesterol, Calc 42 HDL Cholesterol 65 H Cholesterol/HDL Ratio 1.8 L Impressions Impression: Small bowel obstruction resolved Negative small bowel follow-through DC NGT or clamp the NGT Clear liquid diet Assessment & Plan Time Spent With Patient Time: Total time spent is greater than 50% in coordination of care (as documented) at patient's floor/unit and/or counseling patient:
--- NOTE | 2024-08-23 14:26 | PC.PT ---
Patient was approahed at ~1030. Patient is alert and oriented. As per patient, she was able to ambulate to the restroom. She is just a little dizzy, she thinks because she has not eaten and also does not have any appetite to eat. Patient currently has NG Tube. Will cancel PT evaluation secondary to patient is ambulatory. Ordering physician made aware.
--- NOTE | 2024-08-23 14:31 | PC.SS ---
Hermila Pelayo is a 74-year-old female admitted to Med Surg for SBO. SS conducted bedside contact with the patient to complete initial assessment and to discuss discharge planning. Role and reason explained. Patient confirmed demographic information. Patient identifies son Tree Pelayo [phone] as her surrogate decision maker. Pt states she lives with her son and she is able to complete all ADL?s independently. No need for any source of DME. Pts PCP is Dr. Ivy. Pharmacy of choice is [facility] in [facility]. Discharge options discussed and the pt wishes to return home.? Family will provide transportation upon DC. No further intervention required at this time, marriage and family social worker would be available to address any further concerns. DC Plan: Home Contact: Tree Hoang Address: Confirmed on face sheet PCP: Rene Ivy
[2024-08-23 15:37] LABS: Sodium 144 mMol/L (136-145)
--- NOTE | 2024-08-23 15:55 | PC.SS ---
Rounding: Pending Dr. Leroy reccs poss DC home 08/24
[2024-08-23] MEDS: ATORVASTATIN CALCIUM 10 MG TABLET PO (20:06)
[2024-08-23] MEDS: MORPHINE SULF INJ 10 MG/ML VIAL IVP (21:35)
[2024-08-24] VITALS (9 sets, daily range): BP systolic 127–154; BP diastolic 59–87; PULSE 54–79; RESP 16–18; TEMP 36–36.4; O2SAT 90–98; BMI 21.1
[2024-08-24] MEDS: MORPHINE SULF INJ 10 MG/ML VIAL IVP (06:37)
[2024-08-24 06:38] LABS: Basophils # (Auto) 0.1 Thou/mm3 (0.0-0.2); Basophils % (Auto) 1 % (0-2.5); Eosinophils # (Auto) 0.2 Thou/mm3 (0.0-0.5); Eosinophils % (Auto) 3 % (0-10); Hematocrit 40.0 % (36.0-46.0); Hemoglobin 12.8 g/dL (12.0-16.0); Immature Granulocytes Auto 0.03 Thou/mm3 (0.00-0.00); Lymphocytes # (Auto) 2.9 Thou/mm3 (1.0-4.8); Lymphocytes % (Auto) 33 % (10-50); Mean Corpuscular HGB Conc 32.0 g/dl (31.0-37.0); Mean Corpuscular Hemoglobin 31.3 pg (25.0-35.0); Mean Corpuscular Volume 98 fL (80-100); Monocytes # (Auto) 0.8 Thou/mm3 (0.0-0.8); Monocytes % (Auto) 9 % (0-12); Neutrophils # (Auto) 4.7 Thou/mm3 (1.8-7.7); Neutrophils % (Auto) 54 % (37-80); Nucleated Red Blood Cell # 0.00 Thou/mm3 (0.00-0.00); Nucleated Red Blood Cell % 0 /100 WBC (0); Platelet Count 187 Thou/mm3 (140-440); RDW Standard Deviation 54.1 fL (36.4-46.3); Red Blood Count 4.09 Miln/mm3 (4.00-5.20); White Blood Count 8.7 Thou/mm3 (3.6-11.0)
[2024-08-24 07:06] LABS: Alanine Aminotransferase 43 U/L (10-49); Albumin, Serum 3.5 gm/dL (3.4-4.8); Albumin/Globulin Ratio 1.6 (1.2-2.2); Alkaline Phosphatase 83 U/L (46-116); Anion Gap 8 (7-16); Aspartate Amino Transferase 36 U/L (0-34); BUN/Creatinine Ratio 13 Ratio (12-20); Bilirubin,Total 0.7 mg/dL (0.3-1.2); Blood Urea Nitrogen 12 mg/dL (9-23); Calcium 8.6 mg/dL (8.3-10.6); Calcium (Corrected) 9.0 mg/dL (8.5-10.1); Carbon Dioxide 28.8 mMol/L (20.0-31.0); Chloride 107 mMol/L (98-107); Creatinine (Component) 0.9 mg/dL (0.6-1.3); Estimated Creatinine Clearance 38.8 mL/min (>60); Globulin 2.2 gm/dL (2.3-3.5); Glucose 100 mg/dL (74-106); Magnesium 2.0 mg/dL (1.6-2.6); Osmolality,Calculated 286 (275-295); Phosphorous 2.8 mg/dL (2.4-5.1); Potassium 3.7 mMol/L (3.4-5.1); Sodium 144 mMol/L (136-145); Total Protein 5.7 gm/dL (5.7-8.2); eGFR > 60 See Note
--- NOTE | 2024-08-24 09:00 | PD.RESPRO ---
Documentation for date of: 08/24/24 Subjective Subjective Interval history: Pt examined at bedside today. No acute overnight events. Pt reports improvement in her abdominal pain. She says that she has had a bowel movement. She would like to see if she can tolerate solid food. She is wondering when she is going to go home. No other complaints at this time. Exam Vital Signs Temp Pulse Resp BP Pulse Ox O2 Del Method 97.2 F 53 L 16 133/64 H 92 L Room Air 08/25/24 04:00 08/25/24 04:00 08/25/24 04:00 08/25/24 04:00 08/25/24 04:00 08/25/24 04:00 Narrative Exam General: AAOx3, NAD, elderly, pleasant, frail female HEENT: Moist mucous membranes, conjunctiva clear, EOMI, PERRLA, Cardiovascular: S1, S2, radial pulses +2 bilat, RRR Pulmonary: CTAB bilat no cough, no wheezing GI: No tenderness to light or deep palpitation, no guarding, rigidity, rebound tenderness or distension Extremities: No presence of trace or pitting edema in lower extremities bilaterally, dorsalis pedis pulses +2 bilaterally Neuro: AAOx3, no focal motor or sensory deficits in the UE or LE bilat Psych: Good judgement, thought and behavior Objective Labs 08/25/24 05:52 08/25/24 05:52 Labs: Laboratory Results - last 24 hr 08/25/24 05:52 WBC 7.3 RBC 3.85 L Hgb 12.0 Hct 36.6 MCV 95 MCH 31.2 MCHC 32.8 RDW Std Deviation 50.9 H Plt Count 177 Neut % (Auto) 39 Lymph % (Auto) 47 [place] % (Auto) 9 Eos % (Auto) 4 Baso % (Auto) 1 Neut # (Auto) 2.9 Lymph # (Auto) 3.4 [place] # (Auto) 0.6 Eos # (Auto) 0.3 Baso # (Auto) 0.1 Immature Gran # (Auto) 0.01 H Absolute Nucleated RBC 0.00 Immature Gran % 0 Nucleated RBC % 0 Sodium 143 Potassium 4.0 Chloride 104 Carbon Dioxide 28.4 Anion Gap 11 BUN 10 Creatinine 0.9 Estim Creat Clear Calc 36.8 L eGFR > 60 BUN/Creatinine Ratio 11 L Glucose 94 Calculated Osmolality 283 Calcium 8.7 Corrected Calcium 9.1 Phosphorus 2.5 Magnesium 1.6 Total Bilirubin 0.4 AST 31 ALT 33 Alkaline Phosphatase 97 Total Protein 5.8 Albumin 3.5 Globulin 2.3 Albumin/Globulin Ratio 1.5 Quality Measures Quality Measures none Advance care planning discussed with:: patient Assessment & Plan Assessment Current Active Medications: Generic Name Dose Route Start Last Admin Trade Name Freq PRN Reason Stop Dose Admin Acetaminophen 650 mg 08/22/24 17:35 Acetaminophen 325 Mg Tablet PO 09/21/24 17:34 Q6H PRN PAIN SCALE 1-3 (mild Acetaminophen 650 mg 08/22/24 17:35 Acetaminophen 325 Mg Tablet PO 09/21/24 17:34 Q6H PRN Fever >100.4 Hydrocodone Bitart/Acetaminophen 1 tab 08/24/24 13:32 08/25/24 00:11 Hydrocodone/Apap 10/325 Tab PO 08/29/24 13:31 1 tab Q4HR PRN Administration Breakthrough Pain Albuterol/Ipratropium 3 ml 08/22/24 18:21 Albuterol/Ipratropium (Duoneb) Rt Joselin 3 Ml Nebu INH 09/21/24 18:20 Q6HRRT PRN Wheezing Atorvastatin Calcium 10 mg 08/22/24 21:00 08/24/24 20:17 Atorvastatin Calcium 10 Mg Tablet PO 09/21/24 20:59 10 mg HS BARBARA Administration Heparin Sodium (Porcine) 5,000 unit 08/22/24 21:00 08/24/24 20:17 Heparin Sod Inj 5000 Unit/Ml Vial SC 09/05/24 20:59 5,000 unit BID BARBARA Administration Hydralazine HCl 10 mg 08/22/24 17:43 Hydralazine Inj 20 Mg/Ml Vial IVP 09/21/24 17:42 Q6H PRN BP >160/100 Acetaminophen 1,000 mg in 68 mls @ 170 mls/hr 08/22/24 17:38 Ofirmev Inj IV Q6HR PRN Fever or Pain 1-3 Lidocaine 1 patch 08/22/24 17:44 Lidocaine 5% 1 Patch TOP 09/21/24 17:43 UD PRN Pain right shoudler Ondansetron HCl 4 mg 08/22/24 17:35 08/23/24 03:25 Ondansetron Inj 2 Mg/Ml Inj 2 Ml IVP 09/21/24 17:34 4 mg Q6H PRN Administration NAUSEA OR VOMITING Protocol Pantoprazole Sodium 40 mg 08/22/24 17:45 08/24/24 10:08 Pantoprazole Inj 40 Mg Vial IVP 09/21/24 17:44 40 mg QDAY BARBARA Administration Plan Assesssment In summary: 74-year-old female with 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 Admitted for high-grade SBO. Recommendation from general surgery and GI teams. 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 However reports worsening pain over the last 2 days associated with nausea and vomiting. Last bowel movement was yesterday and was normal. Currently not passing gas. Extensive abdominal tenderness tenderness noted noted on exam throughout. Sounds were present but decreased on the right. CT abdomen showed high-grade SBO. General surgery on board. Given extensive history of adenocarcinoma and Carrasco syndrome, we have involved her GI doctor, Dr. Leroy. Small bowel series shows resolution of SBO. NGT was discontinued. 08/25/2024: We will see how patient tolerates mechanical soft food, and if pt tolerates and continues to have BM, we will d/c patient Pt did complain of some abdominal pain, will transition from IV morphine to [place] Plan: ? Pain control with [place] 10 now ? Advance diet as tolerated, mechanical soft diet for now ? General surgery consulted, Appreciate recs #Asymptomatic Bacterurinia Urine culture shows Klebsiella, pt denies symptoms Plan: - Will hold on tx at this time Mild hypernatremia, resolved Sodium 148, likely from NS. Free water deficit 0.3 L Hypertension (resolved) Likely reactive secondary to pain. No history of hypertension. Reports BP usually on the softer side. Currently normotensive. ? Continue to monitor HLD No lipid panel on file. ? Continue home ATORVASTATIN 10 mg daily Seasonal allergy Asthma ? DuoNebs q.6h. PRN Extensive history of malignancy Adenocarcinoma transverse colon s/p colectomy Invasive carcinoma of the breast s/p right mastectomy Reported history of liver masses Hx pulmonary nodule Previously followed up with Dr. Puri, last seen a year ago. Currently denies B symptoms such as fever, chills, or night sweat, or abnormal weight loss. ? Recommended outpatient follow-up Case was discussed with attending physician, Dr. Tico Rai, DO PGY II Attending Provider Attestation/Addendum I have examined the patient, reviewed labs and imaging findings, discussed the case with the resident(s), and reviewed entered orders. I agree with the plan of care as outlined in this note, with these additional summaries/recommendations: Patient seen at bedside. No acute overnight events. Patient still endorsing abdominal discomfort/pain. She underwent small bowel series which was eventually negative for complete small bowel obstruction. She has had bowel movement passed gas. Despite this she did not tolerate advancement of diet for lunch and endorses abdominal pain and nausea. For these reasons patient will remain hospitalized and continue to advance diet as tolerated. General surgery evaluated the patient reports symptoms are likely related to previous adhesions and no further intervention needed from a surgical standpoint at this time. Continue as needed Zofran and antihypertensives. We will attempt to wean from IV morphine today to oral [place]. Patient updated on the plan and in agreement. All questions answered to satisfaction. Please see residents note for additional details and management. Dr. Tico MD
[2024-08-24] MEDS: HEPARIN SOD INJ 5000 UNIT/ML VIAL SC ×2 (10:09→20:17)
--- NOTE | 2024-08-24 10:20 | PD.SURPROG ---
Documentation for date of: 08/24/24 Subjective Subjective Narrative: Patient is seen and examined. Her pain is improving. She is tolerating clear liquids and having bowel movements Exam Vital Signs Temp Pulse Resp BP Pulse Ox O2 Del Method 97.3 F 60 16 138/64 H 94 L Room Air 08/24/24 08:00 08/24/24 08:00 08/24/24 08:00 08/24/24 08:00 08/24/24 08:00 08/24/24 08:00 Constitutional Constitutional: no acute distress Routine Abdominal Exam Comments: Abdomen is soft and nondistended. She has tenderness to palpation throughout the abdomen, no rebound tenderness or peritonitis at this Assessment & Plan Assessment Additional comments: Small bowel obstruction resolving Plan Advance to soft diet. If tolerating soft diet and continues to have bowel movement may discharge home. She has chronic abdominal pain that are most likely due to adhesions from previous operations, no further intervention indicated at this time.
--- NOTE | 2024-08-24 14:32 | PD.IMPROG ---
Documentation for date of: 08/24/24 Subjective Subjective Interval history: Tolerating liquid diet Having bowel movements Exam Vital Signs Temp Pulse Resp BP Pulse Ox O2 Del Method 97.3 F 70 18 127/59 L 96 Room Air 08/24/24 12:00 08/24/24 12:07 08/24/24 12:07 08/24/24 12:00 08/24/24 12:07 08/24/24 12:00 Objective Labs 08/24/24 05:50 08/24/24 05:50 Labs: Laboratory Results - last 24 hr 08/23/24 08/24/24 15:17 05:50 WBC 8.7 RBC 4.09 Hgb 12.8 Hct 40.0 MCV 98 MCH 31.3 MCHC 32.0 RDW Std Deviation 54.1 H Plt Count 187 Neut % (Auto) 54 Lymph % (Auto) 33 [place] % (Auto) 9 Eos % (Auto) 3 Baso % (Auto) 1 Neut # (Auto) 4.7 Lymph # (Auto) 2.9 [place] # (Auto) 0.8 Eos # (Auto) 0.2 Baso # (Auto) 0.1 Immature Gran # (Auto) 0.03 H Absolute Nucleated RBC 0.00 Immature Gran % 0 Nucleated RBC % 0 Sodium 144 144 Potassium 3.7 Chloride 107 Carbon Dioxide 28.8 Anion Gap 8 BUN 12 Creatinine 0.9 Estim Creat Clear Calc 38.8 L eGFR > 60 BUN/Creatinine Ratio 13 Glucose 100 Calculated Osmolality 286 Calcium 8.6 Corrected Calcium 9.0 Phosphorus 2.8 Magnesium 2.0 Total Bilirubin 0.7 AST 36 H ALT 43 Alkaline Phosphatase 83 D Total Protein 5.7 Albumin 3.5 D Globulin 2.2 L Albumin/Globulin Ratio 1.6 Impressions Impression: Resolved small bowel obstruction Advance diet as tolerated Assessment & Plan A&P Narrative # Small bowel obstruction most likely due to abdominal adhesions NGT to intermittent suction Gastrografin small bowel follow-through Will follow the patient # Colon carcinoma status post colonic resection Patient already scheduled for an outpatient surveillance colonoscopy # Dilated intrahepatic biliary ductal system with a total bilirubin of 0.7 AST ALT mildly elevated at 84 and 78 and alk phos of 104 Nothing needs to be done at this point as it has been fully worked up in the past at [facility] Will follow the patient Thank you very much for the opportunity to participate in the care of this patient Time Spent With Patient Time: Total time spent is greater than 50% in coordination of care (as documented) at patient's floor/unit and/or counseling patient:
--- NOTE | 2024-08-24 15:54 | PC.SS ---
Rounding: Pending BM and oral intake, poss DC 08/25
[2024-08-24] MEDS: ATORVASTATIN CALCIUM 10 MG TABLET PO (20:17)
[2024-08-25] VITALS: BP 153/78; PULSE 63; RESP 17; TEMP 36.3; O2SAT 93
[2024-08-25 04:00] VITALS: BP 133/64; PULSE 53; RESP 16; TEMP 36.2; O2SAT 92
[2024-08-25 06:26] LABS: Basophils # (Auto) 0.1 Thou/mm3 (0.0-0.2); Basophils % (Auto) 1 % (0-2.5); Eosinophils # (Auto) 0.3 Thou/mm3 (0.0-0.5); Eosinophils % (Auto) 4 % (0-10); Hematocrit 36.6 % (36.0-46.0); Hemoglobin 12.0 g/dL (12.0-16.0); Immature Granulocytes Auto 0.01 Thou/mm3 (0.00-0.00); Lymphocytes # (Auto) 3.4 Thou/mm3 (1.0-4.8); Lymphocytes % (Auto) 47 % (10-50); Mean Corpuscular HGB Conc 32.8 g/dl (31.0-37.0); Mean Corpuscular Hemoglobin 31.2 pg (25.0-35.0); Mean Corpuscular Volume 95 fL (80-100); Monocytes # (Auto) 0.6 Thou/mm3 (0.0-0.8); Monocytes % (Auto) 9 % (0-12); Neutrophils # (Auto) 2.9 Thou/mm3 (1.8-7.7); Neutrophils % (Auto) 39 % (37-80); Nucleated Red Blood Cell # 0.00 Thou/mm3 (0.00-0.00); Nucleated Red Blood Cell % 0 /100 WBC (0); Platelet Count 177 Thou/mm3 (140-440); RDW Standard Deviation 50.9 fL (36.4-46.3); Red Blood Count 3.85 Miln/mm3 (4.00-5.20); White Blood Count 7.3 Thou/mm3 (3.6-11.0)
[2024-08-25 07:05] LABS: Alanine Aminotransferase 33 U/L (10-49); Albumin, Serum 3.5 gm/dL (3.4-4.8); Albumin/Globulin Ratio 1.5 (1.2-2.2); Alkaline Phosphatase 97 U/L (46-116); Anion Gap 11 (7-16); Aspartate Amino Transferase 31 U/L (0-34); BUN/Creatinine Ratio 11 Ratio (12-20); Bilirubin,Total 0.4 mg/dL (0.3-1.2); Blood Urea Nitrogen 10 mg/dL (9-23); Calcium 8.7 mg/dL (8.3-10.6); Calcium (Corrected) 9.1 mg/dL (8.5-10.1); Carbon Dioxide 28.4 mMol/L (20.0-31.0); Chloride 104 mMol/L (98-107); Creatinine (Component) 0.9 mg/dL (0.6-1.3); Estimated Creatinine Clearance 36.8 mL/min (>60); Globulin 2.3 gm/dL (2.3-3.5); Glucose 94 mg/dL (74-106); Magnesium 1.6 mg/dL (1.6-2.6); Osmolality,Calculated 283 (275-295); Phosphorous 2.5 mg/dL (2.4-5.1); Potassium 4.0 mMol/L (3.4-5.1); Sodium 143 mMol/L (136-145); Total Protein 5.8 gm/dL (5.7-8.2); eGFR > 60 See Note
[2024-08-25 08:00] VITALS: BP 127/78; PULSE 51; RESP 18; TEMP 36; O2SAT 94
--- NOTE | 2024-08-25 08:23 | EKG_ITS ---
[facility] Test Date: 2024-08-25 Pat Name: RUDDY BLACK [facility] Gender: Female [employer]: KATHERIN : 1950 Requested By: Edward Rai Order Number: [id number] Reading MD: Edward Rai Measurements Intervals [place] Rate: 77 P: 60 MI: 160 QRS: 30 QRSD: 77 T: 20 QT: 358 QTc: 406 Interpretive Statements SINUS RHYTHM WITH SINUS ARRHYTHMIA Compared to ECG 04/14/2023 10:12:52 Sinus bradycardia no longer present /store/[id number]
[2024-08-25] MEDS: HEPARIN SOD INJ 5000 UNIT/ML VIAL SC (10:04)
--- NOTE | 2024-08-25 10:27 | ESDS_ITS ---
Planned Discharge Date 08/25/24 DS: Providers Provider Date of admission: 08/22/24 17:35 Primary care physician: Rene Ivy MD Admitting Provider: Ezra Burch MD Attending Provider on Admission: Galen Doshi MD Consults: 08/22/24 13:17 Consult to General Surgery Stat Comment: Consulting Provider: Cornelius Salas 08/22/24 17:40 Consult to Gastroenterology Routine Comment: SBO, Hx adenocarcinoma colon Consulting Provider: Stefani Leroy Attending Provider on DC: Galen Doshi MD Discharging Provider: Galen Doshi MD DS: Diagnosis Problem List Completed Was Problem List Reviewed/Reconciled?: Yes Hospital Course Hospital Course Hospital course: Hermila is a 74-year-old female with relevant PMHx of Carrasco syndrome, colonic tubular adenoma, 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 Pt arrived to the ED Afebrile, BP 183/101, HR 96, satting well on room air. She was worked up, CBC and CMP relatively unremarkable except for elevated AST/ALT which appear to be chronic, and EGFR 52%, creatinine 1.1 (baseline 1.0.). UA turbid with positive leukocyte esterase, WBC 14. CT abdomen showed high-grade SBO, redemonstrated hepatic duct dilation, also seen on CT abdomen from 2023 (likely close cholecystectomy change). Medicine was consulted and pt was admitted to floors. While pt on the floors, general surgery and GI was consulted who both recommended small bowel series with Gastrografin. Unless abdominal film, SBO had resolved. Patient was then advanced with her diet and had a bowel movement afterwards. Patient continued to improve with her abdominal pain, continue to have bowel movements and her diet was advanced. Patient was weaned off of IV pain medicines and was medically cleared for discharge. Patient was then discharged with the following instructions Discharge Instructions: * Follow-up with PCP within 1-2 weeks of discharge. * Follow-up with General Surgery, Dr. Salas, within 1-2 weeks of discharge. * Follow-up with your GI doctor within 1-2 weeks of discharge. * Continue taking medications as prescribed below. * Take your antibiotic as prescribed, Cefuroxime for five days * Return to Emergency Room if symptoms persist, worsen, or new symptoms develop. Problem List: High-grade SBO (resolved) Adenocarcinoma of transverse colon S/p transverse colectomy 2023 Carrasco syndrome Hx tubular adenocarcinoma of the colon Chronic constipation UTI Mild hypernatremia Hypertension (resolved) HLD Seasonal allergy Asthma Extensive history of malignancy Adenocarcinoma transverse colon s/p colectomy Invasive carcinoma of the breast s/p right mastectomy Reported history of liver masses Hx pulmonary nodule Discharge summary was reviewed with my attending Dr. Tico Rai, PGY-2 Time Spent with Patient Time attestation: Total time spent providing and/or coordinating discharge services: Time spent: Greater than 30 minutes Exam Vital Signs Temp Pulse Resp BP Pulse Ox O2 Del Method 96.8 F 51 L 18 127/78 94 L Room Air 08/25/24 08:00 08/25/24 08:00 08/25/24 08:00 08/25/24 08:00 08/25/24 08:00 08/25/24 08:00 Narrative Exam General: AAOx3, NAD, elderly, pleasant, frail female HEENT: Moist mucous membranes, conjunctiva clear, EOMI, PERRLA, Cardiovascular: S1, S2, radial pulses +2 bilat, RRR Pulmonary: CTAB bilat no cough, no wheezing GI: No tenderness to light or deep palpitation, no guarding, rigidity, rebound tenderness or distension Extremities: No presence of trace or pitting edema in lower extremities bilaterally, dorsalis pedis pulses +2 bilaterally Neuro: AAOx3, no focal motor or sensory deficits in the UE or LE bilat Psych: Good judgement, thought and behavior Discharge Plan Plan Patient Disposition: HOME (Self Care) Patient condition on transfer: Stable Care Plan Goals: Discharge Instructions * Follow-up with PCP within 1-2 weeks of discharge. * Follow-up with General Surgery, Dr. Salas, within 1-2 weeks of discharge. * Follow-up with your GI doctor within 1-2 weeks of discharge. * Continue taking medications as prescribed below. * Take your antibiotic as prescribed, Cefuroxime for five days * Return to Emergency Room if symptoms persist, worsen, or new symptoms develop. Prescriptions/Referrals Prescriptions/Med Rec: New cefuroxime axetil 250 mg tablet 250 mg PO BID 5 Days Qty: 10 0RF Rx Instructions: Take one tablet by mouth twice a day Continued hydrocodone-acetaminophen 10-325 mg tablet 1 tab PO Q4HR PRN (Reason: Pain) omeprazole 40 mg capsule,delayed release(DR/EC) 40 mg PO QDAY Patient Comments: take 1 capsule by mouth once daily mometasone 50 mcg/actuation spray,non-aerosol 50 mcg INTRANASAL QDAY fluticasone propionate 110 mcg/actuation HFA aerosol inhaler 2 puff INHALATION PRN PRN (Reason: DIFFICULTY BREATHING) Patient Comments: inhale 1 puff by mouth and INTO THE LUNGS twice a day docusate sodium 100 mg Capsule 100 mg PO BID Qty: 90 0RF aspirin 81 mg tablet,delayed release (DR/EC) 81 mg PO QDAY Patient Comments: take 1 tablet by mouth once daily Held alprazolam 1 MG tablet 1 mg PO BID PRN (Reason: Anxiety) Qty: 0 Hold Instructions: resume with PCP Referrals: Cornelius Salas MD [Physician] - Rene Ivy MD [Primary Care Provider] - Patient/Caregiver Discharge Instructions Discharge Activity: activity as tolerated Education Materials: Small Bowel Obstruction, Large Bowel Obstruction, How the Colon Works, Obstruction Intestinal Print Language: Citizen Of [place] Stand Alone Forms: [employer]oko Award Info., Patient Portal Info Letter Discharge Order Discharge Orders: Discharge (Routine); Ordered 08/25/24 Ordered By: Yo Russ Quality Discharge Quality Measures VTE prophylaxis (Heparin) Attestestation MD Attestation I have examined the patient, reviewed labs and imaging findings, discussed the case with the resident(s), and reviewed entered orders. I agree with the plan of care as outlined in this note. Time Spent: [address] Tico MD
[2024-08-25 12:00] VITALS: BP 168/73; PULSE 55; RESP 18; TEMP 36.4; O2SAT 95
--- NOTE | 2024-08-25 15:11 | PC.SS ---
rounding note: D/c home today
[2024-08-25 16:00] VITALS: BP 141/85; PULSE 71; RESP 18; TEMP 36.3; O2SAT 93
[2024-08-25 16:39] VITALS: PULSE 77; RESP 18; O2SAT 98
--- NOTE | 2024-08-25 18:39 | PD.IMPROG ---
Documentation for date of: 08/25/24 Subjective Subjective Interval history: Late entry for the note Case discussed with the internal medicine team Okay to discharge patient home outpatient colonoscopy and upper endoscopy scheduled for next week under [facility] Exam Vital Signs Temp Pulse Resp BP Pulse Ox O2 Del Method 97.3 F 77 18 141/85 H 98 Room Air 08/25/24 16:00 08/25/24 16:39 08/25/24 16:39 08/25/24 16:00 08/25/24 16:39 08/25/24 16:00 Objective Labs 08/25/24 05:52 08/25/24 05:52 Labs: Laboratory Results - last 24 hr 08/25/24 05:52 WBC 7.3 RBC 3.85 L Hgb 12.0 Hct 36.6 MCV 95 MCH 31.2 MCHC 32.8 RDW Std Deviation 50.9 H Plt Count 177 Neut % (Auto) 39 Lymph % (Auto) 47 [place] % (Auto) 9 Eos % (Auto) 4 Baso % (Auto) 1 Neut # (Auto) 2.9 Lymph # (Auto) 3.4 [place] # (Auto) 0.6 Eos # (Auto) 0.3 Baso # (Auto) 0.1 Immature Gran # (Auto) 0.01 H Absolute Nucleated RBC 0.00 Immature Gran % 0 Nucleated RBC % 0 Sodium 143 Potassium 4.0 Chloride 104 Carbon Dioxide 28.4 Anion Gap 11 BUN 10 Creatinine 0.9 Estim Creat Clear Calc 36.8 L eGFR > 60 BUN/Creatinine Ratio 11 L Glucose 94 Calculated Osmolality 283 Calcium 8.7 Corrected Calcium 9.1 Phosphorus 2.5 Magnesium 1.6 Total Bilirubin 0.4 AST 31 ALT 33 Alkaline Phosphatase 97 Total Protein 5.8 Albumin 3.5 Globulin 2.3 Albumin/Globulin Ratio 1.5 Impressions Impression: Small bowel obstruction resolved Colon carcinoma status post colonic resection Outpatient follow-up Assessment & Plan A&P Narrative # Small bowel obstruction most likely due to abdominal adhesions NGT to intermittent suction Gastrografin small bowel follow-through Will follow the patient # Colon carcinoma status post colonic resection Patient already scheduled for an outpatient surveillance colonoscopy # Dilated intrahepatic biliary ductal system with a total bilirubin of 0.7 AST ALT mildly elevated at 84 and 78 and alk phos of 104 Nothing needs to be done at this point as it has been fully worked up in the past at [facility] Will follow the patient Thank you very much for the opportunity to participate in the care of this patient Time Spent With Patient Time: Total time spent is greater than 50% in coordination of care (as documented) at patient's floor/unit and/or counseling patient:
== END 2024-08-25 15:25 | disposition home or self-care (01) | DRG 389 ==
LOC: SERX 13:21 → SERHOLD 18:26 → S3SX 19:50
PROVIDERS: Nurse Practitioner Primary Care; Admitting Provider Student in an Organized Health Care Education/Training Program; Emergency Provider Family Medicine; PCP Family Medicine; Visit Provider Student in an Organized Health Care Education/Training Program
DX: K56.609 Unspecified intestinal obstruction, unspecified as to partial versus complete obstruction (principal); C18.4 Malignant neoplasm of transverse colon; E87.0 Hyperosmolality and hypernatremia; N39.0 Urinary tract infection, site not specified; E78.5 Hyperlipidemia, unspecified; Z15.09 Genetic susceptibility to other malignant neoplasm; Z90.11 Acquired absence of right breast and nipple; J45.909 Unspecified asthma, uncomplicated; Z85.038 Personal history of other malignant neoplasm of large intestine; Z85.51 Personal history of malignant neoplasm of bladder; Z92.21 Personal history of antineoplastic chemotherapy; N63.10 Unspecified lump in the right breast, unspecified quadrant; R91.1 Solitary pulmonary nodule; Z90.49 Acquired absence of other specified parts of digestive tract; I10 Essential (primary) hypertension; R16.0 Hepatomegaly, not elsewhere classified; B96.1 Klebsiella pneumoniae [K. pneumoniae] as the cause of diseases classified elsewhere; F17.200 Nicotine dependence, unspecified, uncomplicated; G89.29 Other chronic pain; Z79.82 Long term (current) use of aspirin; Z79.899 Other long term (current) drug therapy; Z85.3 Personal history of malignant neoplasm of breast; Z86.0109 Personal history of other colon polyps; Z90.81 Acquired absence of spleen
CPT/HCPCS: 36415; 74018; 74177; 74250; 80053; 80061; 81001; 83605; 83690; 83735; 84100; 84295; 85025; 87077; 87086; 87186; 93005; 96361; 96372; 96374; 96375; 96376; A4649; J1644; J2270; J2405; J2470; J7030; J7060; J7120; Q9963; Q9967; A9270

== ENCOUNTER 2024-08-31 07:45 | Day surgery (SDC) | payer MEDICARE, MEDICAID, SELFPAY ==
[2024-08-30 10:11] VITALS: BMI 19.5
[2024-08-30 15:27] LABS: HCG,Qualitative Serum Negative
[2024-08-30 15:31] LABS: INR 0.9 (0.9-1.3); Partial Thromboplastin Time 26.6 Seconds (22.0-36.0); Prothrombin Time 10.3 Seconds (9.0-12.2)
[2024-08-30 15:35] LABS: Alanine Aminotransferase 32 U/L (10-49); Albumin, Serum 4.4 gm/dL (3.4-4.8); Albumin/Globulin Ratio 1.6 (1.2-2.2); Alkaline Phosphatase 122 U/L (46-116); Anion Gap 9 (7-16); Aspartate Amino Transferase 34 U/L (0-34); BUN/Creatinine Ratio 13 Ratio (12-20); Bilirubin,Total 0.4 mg/dL (0.3-1.2); Blood Urea Nitrogen 13 mg/dL (9-23); Calcium 9.3 mg/dL (8.3-10.6); Calcium (Corrected) 9.3 mg/dL (8.5-10.1); Carbon Dioxide 27.1 mMol/L (20.0-31.0); Chloride 105 mMol/L (98-107); Creatinine (Component) 1.0 mg/dL (0.6-1.3); Estimated Creatinine Clearance 34.8 mL/min (>60); Globulin 2.7 gm/dL (2.3-3.5); Glucose 95 mg/dL (74-106); Osmolality,Calculated 281 (275-295); Potassium 4.2 mMol/L (3.4-5.1); Sodium 141 mMol/L (136-145); Total Protein 7.1 gm/dL (5.7-8.2); eGFR 59 See Note
[2024-08-31 08:09] VITALS: BP 143/92; PULSE 93; RESP 13; TEMP 36.6; O2SAT 95; BMI 19.5
[2024-08-31] MEDS: RINGERS LACTATED 1000 ML 1,000 ML 20 ML IV (09:08)
[2024-08-31 09:53] VITALS: BP 91/63; PULSE 89; RESP 25; TEMP 36.7; O2SAT 99
[2024-08-31 10:00] VITALS: BP 99/65; PULSE 78; RESP 16; O2SAT 100
--- NOTE | 2024-08-31 10:09 | SUR.PHASEII ---
0953: Pt received for recovery. Pt obtunded. Does respond to stimulation with eye opening then immediately drifts back to sleep. Resp even, unlabored. VS stable. No c/o pain, discomfort.
[2024-08-31 10:10] VITALS: BP 114/62; PULSE 69; RESP 15; O2SAT 100
[2024-08-31 10:20] VITALS: BP 143/80; PULSE 72; RESP 17; TEMP 36.7; O2SAT 98
--- NOTE | 2024-08-31 12:50 | SUR.PHASEII ---
1020: Pt more awake, alert. VS stable. Sitting up tolerating po fluids with no difficulty swallowing and no n/v. 1040: Pt fully awake, oriented x3. Pt assisted to restroom. Ambulation steady. Pt dressed and in transport chair. Awaiting transportation. 1115: Transportation available. Pt and son stated understanding of discharge instructions. Pt discharged from [facility] in stable condition.
== END 2024-08-31 11:15 | disposition home or self-care (01) ==
PROVIDERS: PCP Family Medicine; Referring Provider Specialist; Visit Provider Specialist
PROC: 0DBE8ZX Excision of Large Intestine, Via Natural or Artificial Opening Endoscopic, Diagnostic (ICD-10-PCS; CPT 45380; principal; 2024-08-31 08:30)
PROC: (CPT 43239; 2024-08-31 08:30)
DX: K64.9 Unspecified hemorrhoids (principal); Z85.048 Personal history of other malignant neoplasm of rectum, rectosigmoid junction, and anus; Z85.038 Personal history of other malignant neoplasm of large intestine; K63.89 Other specified diseases of intestine; K62.89 Other specified diseases of anus and rectum; K31.89 Other diseases of stomach and duodenum; K29.50 Unspecified chronic gastritis without bleeding; K20.80 Other esophagitis without bleeding
CPT/HCPCS: 45380; 43239; 36415; 80053; 84703; 85610; 85730; J7120

== ENCOUNTER 2024-11-28 13:21 | Outpatient (RCR) | payer MEDICARE, MEDICAID, SELFPAY ==
--- NOTE | 2024-12-11 00:37 | CTCFLWUP_ITS ---
Patient: RUDDY BLACK : 1950 Page 5 of 6 FOLLOW UP NOTE DATE OF SERVICE: 11/28/2024 NAME: RUDDY BLACK ACCOUNT: [id number] : 1950 AGE: 74 INTERVAL HISTORY: Patient have not completed any new labs since the last visit. No new scanning was completed. Patient's last labs she did show elevated CEA in 2023 ONCOLOGY HISTORY: DIAGNOSIS: Stage I (pT2, pN0, cM 0) well-differentiated invasive adenocarcinoma of the transverse colon. 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 History of right breast cancer 5 to 6 years ago. History of cigarette smoking for the last 45 years. Currently patient smokes half a pack per day. History of noninvasive bladder cancer. Treated with intravesical chemotherapy as per patient few years ago. Dr. Sigala is following her. No evidence of recurrence of bladder malignancy. History of elevated AST and ALT postoperatively (04/13/2023) -Recurrent urinary tract infections -Hiatal hernia on omeprazole 10/25/2023 3 mm pulmonary nodule otherwise no recurrence and CEA was 2.8 REASON FOR TODAY?S VISIT: Abdominal pain DATE OF DIAGNOSIS: 04/13/2023 STAGE/TNM: Stage I TREATMENT HISTORY: Care?Plan Start?Date Cycle Day Intent HISTORY OF PRESENT ILLNESS: Ruddy Black is a 74-year-old ENG speaking female with history of colonic polyposis, status post multiple colonoscopies in the past. Her last colonoscopy was in February 2023 and was negative. Recently she had a repeat colonoscopy and EGD and we do not have results available. Patient has persistent abdominal pain and CT scan was ordered at the last visit. Patient is here to discuss the results. Patient drinks coffee every day. She has been on omeprazole since when she was diagnosed with hiatal hernia. She also have recurrent urinary tract infections and recently completed antibiotics 03/16/2023: Colonoscopy? 04/13/2023: Ms. Black had transverse colectomy. 06/25/2023:CT scan of the chest abdomen pelvis with IV contrast 06/25/2023: CT scan of the chest without IV contrast 07/23/2023: Bilateral screening mammograms? 09/15/2023: Right and left breast biopsy 11/04/2023 CT scan showed 3 mm persistent pulmonary nodule in the left upper lobe. Common hepatic 13 mm dilated and 5.5 mm dilated pancreatic duct. Patient's history of gallbladder removal noted. OTHER MEDICAL HISTORY/CONDITIONS: Colon cancer - dx 04/13/23 Asthma Hyperlipidemia Breast cancer 5-6 yrs ago Bladder cancer - 15 yrs ago Exp Laparotomy; partial colectomy 04/13/23 Resection liver tumors - benign 3 yrs ago Cholecystectomy; revision of cholecystectomy - 4 yrs ago Right breast lump excision - 5-6 yrs ago - [place] Hiatal hernia repair; splenectomy - 1987 Right wrist surgery - 1975 SIMEON - age 27 x 3 - 1967; 1968; and 1971 T and A - age 13 ?Clone Other Med Hx? FAMILY HISTORY: Sibling: Brother - pancreatic - dx 80;brother-gastric- dx 80's Children:?Son?-?leukemia-?dx?age?6 Cancer History:?Sister - breast -dx 40's; granddtr- leukemia - dx 4 mo ?Clone Family Hx? 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 Tobacco?Pack?per?Day:?1 Tobacco?Use?Years:?60 Tobacco Use:?Sill smoking about 3-4 cigarettes/day ETOH?Use:?Socially Drug?Note:?Denies Social?History?Note:?Lives?with?son ?Clone Social Hx? [employer] HISTORY: Menarche?-?Age:?8 Menopause:?27 :?6 Live?Births:?3 Age?1st?:?16 Gynecological?Note:?4?miscarriages ?Clone [employer]ANT Hx? MEDICATIONS: 1. aspirin - 81 mg 1 tab Daily 2. Ativan - 0.5 mg 1 tab one tab po 30 minutes before the procedure 3. atorvastatin - 80 mg 1 tab Daily 4. Dologesic Pain Relief (lido) - 4 % 1 Application Daily 5. doxycycline hyclate - 100 mg 1 Capsule 1 capsule twice dialy 6. ezetimibe - 10 mg 1 tab Daily 7. Macrobid - 100 mg 1 Capsule Daily 8. meclizine - 25 mg 1 tab As directed 9. mometasone - 50 mcg/actuation 2 spray Daily 10. omeprazole - 40 mg 1 Capsule Daily 11. Percocet - 10-325 mg 1 tab As directed 12. Xanax - 1 mg 1 tab Twice a Day 13. ZOFRAN ODT - 4 mg 1 tab Three times a day?[place]ra Meds? Medications Last Reconciled by Mulu Pino MD on 11/28/2024 ALLERGIES: ciprofloxacin; Compazine; hydromorphone; hydromorphone REVIEW OF SYSTEMS: A complete 14-point review of systems was performed and is negative except as noted in interval history. PHYSICAL EXAMINATION: VITAL SIGNS: Temperature?97.7, B/P?153/87, Oxygen?Saturation?94% Weight?103?lbs PAIN: 5 - Between moderate and severe pain GENERAL APPEARANCE: Appears well, in no apparent distress, appropriately interactive. HEENT: Normocephalic, no temporal wasting, normal conjunctiva, no scleral icterus, normal hearing, lips without lesions, neck normal range of motion. CARDIOVASCULAR: Not assessed. PULMONARY: Normal respiratory effort, no respiratory distress or use of accessory muscles, speaking in full sentences, no tachypnea. EXTREMITIES: No pedal edema or cyanosis. SKIN: Normal skin appearance. NEUROLOGIC: Alert and oriented x4. PSHYCHIATRIC: Appropriate affect, mood normal, behavior normal, intact thought and speech. LABORATORY DATA: I have personally reviewed and interpreted each of the patient?s relevant lab tests, abnormal findings are below: Date 08/25/24 08/30/24 ??WHITE?BLOOD?COUNT?(Thou/mm3) 7.3 ? ??RED?BLOOD?COUNT?(Miln/mm3) 3.85?L ? ??HEMOGLOBIN?(gm/dl) 12.0 ? ??HEMATOCRIT?(%) 36.6 ? ??PLATELET?COUNT?(Thou/mm3) 177 ? ??NEUTROPHILS?%,?AUTO?(%) 39 ? ??LYMPH?%,?AUTO?(%) 47 ? ??NEUTROPHILS,?AUTO?(Thou/mm3) 2.9 ? ??GLUCOSE,RANDOM?(mg/dL) 94 95 ??BLOOD?UREA?NITROGEN?(mg/dL) 10 13 ??CREATININE?(mg/dL) 0.90 1.00 ??SODIUM?(mmol/L) 143 141 ??POTASSIUM?(mmol/L) 4.0 4.2 ??CHLORIDE?(mmol/L) 104 105 ??CrCl?(CandG)?(ml/min) 40.38 36.34 ??AST/SGOT?(Unit/L) 31 34 ??ALT/SGPT?(Unit/L) 33 32 ??ALKALINE?PHOSPHATASE?(Unit/L) 97 122?H ??BILIRUBIN,?TOTAL?(mg/dL) 0.4 0.4 ??PROTEIN?TOTAL?(gm/dl) 5.8 7.1 ??ALBUMIN,?SERUM?(gm/dl) 3.5 4.4 ??GLOBULIN?(gm/dl) 2.3 2.7 ??ALBUMIN/GLOBULIN?RATIO 1.5 1.6 ??CALCIUM,?SERUM?(mg/dL) 8.7 9.3 ??CALCIUM?SERUM?(CORRECTED)?(mg/dL) 9.1 9.3 ??MAGNESIUM?(mg/dL) 1.6 ? ASSESSMENT/PLAN: #1Stage I (pT2, pN0, cM 0) well-differentiated invasive adenocarcinoma of the transverse colon. 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 History of cigarette smoking for the last 45 years. Currently patient smokes half a pack per day. History of noninvasive bladder cancer. Treated with intravesical chemotherapy as per patient few years ago. Dr. Sigala is following her. No evidence of recurrence of bladder malignancy. History of elevated AST and ALT postoperatively (04/13/2023) Patient is a high risk and need EGD and colonoscopy also need biopsy for her right breast All orders placed and advised to call office once she has completed RTC in 4 weeks ORDERS: Order # Description [id number] CT Scan + Chest + Abdomen and Pelvis + With Contrast [id number] DXA L-Spine and Hip [id number] Follow Up 2 Months [id number] 3D Mammogram Diagnostic + Right + Breast Ultrasound + Stereotactic Bx Breast [id number] MD Follow Up 4 Week RETURN TO CLINIC: I reviewed the diagnosis, prognosis, and recommended treatment/procedure options with the patient (and/or their legal service support representative), including the potential benefits, risks, side effects and alternative therapies. We also discussed the option of no treatment and the possibility of clinical trial participation, if applicable. All questions were addressed, and they demonstrated understanding. They provided informed consent to proceed with the proposed plan of care. BILLING AND COMPLIANCE: I reviewed external records from providers outside my specialty as summarized above. I spent a total of 50 minutes on this patient?s care on the day of their visit excluding time spent related to any billed procedures. This time includes time spent with the patient as well as time spent documenting in the medical record, reviewing patients records and tests, obtaining history, placing orders, communicating with other healthcare professionals, counseling the patient, family or caregiver, and/or care coordination for the diagnoses above. Electronically Signed by: Kvng Hayes MD T: 12:35 AM CC: Stefani?LARISSA Leroy PCP: Rene Ivy Referring: Rene Ivy This document was completed utilizing speech recognition software. Grammatical errors, random word insertions, pronoun errors, and incomplete sentences are an occasional consequence of this system due to software limitations, ambient noise, and hardware issues. Any formal questions or concerns about the content, text or information contained within the body of this dictation should be directly addressed to the provider for clarification.
== END 2024-12-15 23:59 | disposition home or self-care (01) ==
LOC: SCTC 13:21
PROVIDERS: PCP Family Medicine; Referring Provider Family Medicine; Visit Provider Internal Medicine Hematology & Oncology
DX: C18.4 Malignant neoplasm of transverse colon (principal); F17.210 Nicotine dependence, cigarettes, uncomplicated; Z90.49 Acquired absence of other specified parts of digestive tract; Z92.21 Personal history of antineoplastic chemotherapy; Z85.51 Personal history of malignant neoplasm of bladder
CPT/HCPCS: 99212; G0463

== ENCOUNTER 2024-12-20 15:06 | Outpatient (RCR) | payer MEDICARE, MEDICAID, SELFPAY ==
--- NOTE | 2024-12-20 16:14 | CTCFLWUP_ITS ---
Patient: RUDDY BLACK : 1950 Page 5 of 7 FOLLOW UP NOTE DATE OF SERVICE: 12/20/2024 NAME: RUDDY BLACK ACCOUNT: [id number] : 1950 AGE: 74 INTERVAL HISTORY: No change since last visit. No new labs completed . 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 History of right breast cancer 5 to 6 years ago. History of cigarette smoking for the last 45 years. Currently patient smokes half a pack per day. History of noninvasive bladder cancer. Treated with intravesical chemotherapy as per patient few years ago. Dr. Sigala is following her. No evidence of recurrence of bladder malignancy. History of elevated AST and ALT postoperatively (04/13/2023) -Recurrent urinary tract infections -Hiatal hernia on omeprazole 10/25/2023 3 mm pulmonary nodule otherwise no recurrence and CEA was 2.8 REASON FOR TODAY?S VISIT: Abdominal pain DATE OF DIAGNOSIS: 04/13/2023 STAGE/TNM: Stage I TREATMENT HISTORY: Care?Plan Start?Date Cycle Day Intent HISTORY OF PRESENT ILLNESS: Ruddy Black is a 74-year-old ENG speaking female with history of colonic polyposis, status post multiple colonoscopies in the past. Her last colonoscopy was in February 2023 and was negative. Recently she had a repeat colonoscopy and EGD and we do not have results available. Patient has persistent abdominal pain and CT scan was ordered at the last visit. Patient is here to discuss the results. Patient drinks coffee every day. She has been on omeprazole since when she was diagnosed with hiatal hernia. She also have recurrent urinary tract infections and recently completed antibiotics 03/16/2023: Colonoscopy? 04/13/2023: Ms. Black had transverse colectomy. 06/25/2023:CT scan of the chest abdomen pelvis with IV contrast 06/25/2023: CT scan of the chest without IV contrast 07/23/2023: Bilateral screening mammograms? 09/15/2023: Right and left breast biopsy 11/04/2023 CT scan showed 3 mm persistent pulmonary nodule in the left upper lobe. Common hepatic 13 mm dilated and 5.5 mm dilated pancreatic duct. Patient's history of gallbladder removal noted. OTHER MEDICAL HISTORY/CONDITIONS: Colon cancer - dx 04/13/23 Asthma Hyperlipidemia Breast cancer 5-6 yrs ago Bladder cancer - 15 yrs ago Exp Laparotomy; partial colectomy 04/13/23 Resection liver tumors - benign 3 yrs ago Cholecystectomy; revision of cholecystectomy - 4 yrs ago Right breast lump excision - 5-6 yrs ago - [place] Hiatal hernia repair; splenectomy - 1987 Right wrist surgery - 1975 SIMEON - age 27 x 3 - 1967; 1968; and 1971 T and A - age 13 FAMILY HISTORY: Sibling: Brother - pancreatic - dx 80;brother-gastric- dx 80's Children:?Son?-?leukemia-?dx?age?6 Cancer History:?Sister - breast -dx 40's; granddtr- leukemia - dx 4 mo SOCIAL HISTORY: 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 Tobacco?Pack?per?Day:?1 Tobacco?Use?Years:?60 Tobacco Use:?Sill smoking about 3-4 cigarettes/day ETOH?Use:?Socially Drug?Note:?Denies Social?History?Note:?Lives?with?son ENERGY ASSISTANT HISTORY: Menarche?-?Age:?8 Menopause:?27 :?6 Live?Births:?3 Age?1st?:?16 Gynecological?Note:?4?miscarriages MEDICATIONS: 1. aspirin - 81 mg 1 tab Daily 2. Ativan - 0.5 mg 1 tab one tab po 30 minutes before the procedure 3. atorvastatin - 80 mg 1 tab Daily 4. calcium carbonate-vitamin D3 - 600 mg-20 mcg (800 unit) 1 tab Daily 5. Dologesic Pain Relief (lido) - 4 % 1 Application Daily 6. doxycycline hyclate - 100 mg 1 Capsule 1 capsule twice dialy 7. ezetimibe - 10 mg 1 tab Daily 8. Macrobid - 100 mg 1 Capsule Daily 9. meclizine - 25 mg 1 tab As directed 10. mometasone - 50 mcg/actuation 2 spray Daily 11. Multivitamin 50 Plus - 1 tab Daily 12. omeprazole - 40 mg 1 Capsule in the morning 13. omeprazole - 40 mg 1 Capsule Daily 14. Percocet - 10-325 mg 1 tab As directed 15. Xanax - 1 mg 1 tab Twice a Day 16. ZOFRAN ODT - 4 mg 1 tab Three times a day Medications Last Reconciled by Mulu Pino MD on 11/28/2024 ALLERGIES: ciprofloxacin; Compazine; hydromorphone; hydromorphone REVIEW OF SYSTEMS: A complete 14-point review of systems was performed and is negative except as noted in interval history. PHYSICAL EXAMINATION: VITAL SIGNS: Temperature?98.2, B/P?144/73, Oxygen?Saturation?97% Weight?104?lbs (Change?since?11/28/24:?1?lbs) PAIN: 4 - Moderate pain ECOG Performance Status: 1 - Symptomatic; ambulatory; restricted in strenuous activity GENERAL APPEARANCE: Appears well, in no apparent distress, appropriately interactive. HEENT: Normocephalic, no temporal wasting, normal conjunctiva, no scleral icterus, normal hearing, lips without lesions, neck normal range of motion. CARDIOVASCULAR: Not assessed. PULMONARY: Normal respiratory effort, no respiratory distress or use of accessory muscles, speaking in full sentences, no tachypnea. EXTREMITIES: No pedal edema or cyanosis. SKIN: Normal skin appearance. NEUROLOGIC: Alert and oriented x4. PSHYCHIATRIC: Appropriate affect, mood normal, behavior normal, intact thought and speech. LABORATORY DATA: I have personally reviewed and interpreted each of the patient?s relevant lab tests, abnormal findings are below: Date 08/25/24 08/30/24 ??WHITE?BLOOD?COUNT?(Thou/mm3) 7.3 ? ??RED?BLOOD?COUNT?(Miln/mm3) 3.85?L ? ??HEMOGLOBIN?(gm/dl) 12.0 ? ??HEMATOCRIT?(%) 36.6 ? ??PLATELET?COUNT?(Thou/mm3) 177 ? ??NEUTROPHILS?%,?AUTO?(%) 39 ? ??LYMPH?%,?AUTO?(%) 47 ? ??NEUTROPHILS,?AUTO?(Thou/mm3) 2.9 ? ??GLUCOSE,RANDOM?(mg/dL) 94 95 ??BLOOD?UREA?NITROGEN?(mg/dL) 10 13 ??CREATININE?(mg/dL) 0.90 1.00 ??SODIUM?(mmol/L) 143 141 ??POTASSIUM?(mmol/L) 4.0 4.2 ??CHLORIDE?(mmol/L) 104 105 ??CrCl?(CandG)?(ml/min) 40.38 36.34 ??AST/SGOT?(Unit/L) 31 34 ??ALT/SGPT?(Unit/L) 33 32 ??ALKALINE?PHOSPHATASE?(Unit/L) 97 122?H ??BILIRUBIN,?TOTAL?(mg/dL) 0.4 0.4 ??PROTEIN?TOTAL?(gm/dl) 5.8 7.1 ??ALBUMIN,?SERUM?(gm/dl) 3.5 4.4 ??GLOBULIN?(gm/dl) 2.3 2.7 ??ALBUMIN/GLOBULIN?RATIO 1.5 1.6 ??CALCIUM,?SERUM?(mg/dL) 8.7 9.3 ??CALCIUM?SERUM?(CORRECTED)?(mg/dL) 9.1 9.3 ??MAGNESIUM?(mg/dL) 1.6 ? ASSESSMENT/PLAN: #1Stage I (pT2, pN0, cM 0) well-differentiated invasive adenocarcinoma of the transverse colon. 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 History of cigarette smoking for the last 45 years. Currently patient smokes half a pack per day. History of noninvasive bladder cancer. Treated with intravesical chemotherapy as per patient few years ago. Dr. Sigala is following her. No evidence of recurrence of bladder malignancy. History of elevated AST and ALT postoperatively (04/13/2023) Patient is a high risk and need EGD and colonoscopy also need biopsy for her right breast Patient already is approved to see Dr. Villarreal and should follow-up with him for biopsy Patient already have CT chest abdomen pelvis approved and advised to completed Also have GI follow-up with Dr. Leroy for colonoscopy and EGD As patient have complaints of abdominal pain and heartburn and is a regular use of caffeine and nicotine, will start her on Protonix She does not take calcium and vitamin D so prescription given for multivitamin as well as calcium and vitamin D to be taken daily Patient is advised to come back after above is completed in 6 to 8 weeks ORDERS: Order # Description [id number] + Comprehensive Metabolic Panel - 12 + CBC with Auto Diff + CEA RETURN TO CLINIC: I reviewed the diagnosis, prognosis, and recommended treatment/procedure options with the patient (and/or their legal underwriting sales representative), including the potential benefits, risks, side effects and alternative therapies. We also discussed the option of no treatment and the possibility of clinical trial participation, if applicable. All questions were addressed, and they demonstrated understanding. They provided informed consent to proceed with the proposed plan of care. BILLING AND COMPLIANCE: I reviewed external records from providers outside my specialty as summarized above. I spent a total of 50 minutes on this patient?s care on the day of their visit excluding time spent related to any billed procedures. This time includes time spent with the patient as well as time spent documenting in the medical record, reviewing patients records and tests, obtaining history, placing orders, communicating with other healthcare professionals, counseling the patient, family or caregiver, and/or care coordination for the diagnoses above. Electronically Signed by: Kvng Hayes MD T: 4:12 PM CC: Stefani?Rad? PCP: Rene Iyv Referring: Rene Ivy This document was completed utilizing speech recognition software. Grammatical errors, random word insertions, pronoun errors, and incomplete sentences are an occasional consequence of this system due to software limitations, ambient noise, and hardware issues. Any formal questions or concerns about the content, text or information contained within the body of this dictation should be directly addressed to the provider for clarification.
== END 2025-01-14 23:59 | disposition home or self-care (01) ==
LOC: SCTC 15:06
PROVIDERS: PCP Family Medicine; Referring Provider Family Medicine; Visit Provider Internal Medicine Hematology & Oncology
DX: C18.4 Malignant neoplasm of transverse colon (principal); Z90.49 Acquired absence of other specified parts of digestive tract; F17.210 Nicotine dependence, cigarettes, uncomplicated; Z85.51 Personal history of malignant neoplasm of bladder; Z92.21 Personal history of antineoplastic chemotherapy; R10.9 Unspecified abdominal pain; R12 Heartburn
CPT/HCPCS: 99212; G0463